=== PATIENT | male | born 1945 | race Caucasian/White ===

== ENCOUNTER → 2019-12-08 09:48 | Outpatient (BNVA) | payer OTHER, SELFPAY | PROVIDERS: Family Provider Family Medicine; PCP Family Medicine; Visit Provider Specialist | DX: G31.84 Mild cognitive impairment of uncertain or unknown etiology (principal); G25.0 Essential tremor; G43.019 Migraine without aura, intractable, without status migrainosus; F17.210 Nicotine dependence, cigarettes, uncomplicated | CPT/HCPCS: 99213 ==

== ENCOUNTER → 2021-01-31 12:10 | Outpatient (BNVA) | payer OTHER, SELFPAY | PROVIDERS: Family Provider Family Medicine; PCP Nurse Practitioner Family; Visit Provider Specialist | DX: G31.84 Mild cognitive impairment of uncertain or unknown etiology (principal); G25.0 Essential tremor; F17.210 Nicotine dependence, cigarettes, uncomplicated | CPT/HCPCS: 96116; 99213 ==

== ENCOUNTER → 2021-08-07 12:17 | Outpatient (BNVA) | payer OTHER, SELFPAY | PROVIDERS: Family Provider Family Medicine; PCP Nurse Practitioner Family; Visit Provider Specialist | DX: G25.0 Essential tremor (principal); G31.84 Mild cognitive impairment of uncertain or unknown etiology; F17.210 Nicotine dependence, cigarettes, uncomplicated | CPT/HCPCS: 99213 ==

== ENCOUNTER → 2021-09-07 07:35 | Outpatient (BNVA) | payer OTHER, SELFPAY | PROVIDERS: Family Provider Family Medicine; PCP Nurse Practitioner Family; Visit Provider Urology | DX: R31.0 Gross hematuria (principal) | CPT/HCPCS: 81003; 87086; 88112 ==

== ENCOUNTER 2021-09-19 07:35 | Outpatient (CLI) | payer OTHER, SELFPAY ==
--- NOTE | 2021-09-19 07:39 | CT_ITS ---
WS: [id number] CT CHEST WITH INTRAVENOUS CONTRAST HISTORY: ?PULMONARY NODULE TECHNIQUE: Contiguous 5 mm axial imaging performed on the thorax. Coronal and sagittal reformats are submitted. All CT scans at [facility] use at least one of these dose optimization techniques: automated exposure control; mA and/or kV adjustment per patient size (includes targeted exams where dose is matched to clinical indication); or iterative reconstruction. CONTRAST: Omnipaque 300; 95 mL IV. DLP: 369.94 mGy.cm COMPARISON: None available. Lungs and central airway: Severe pulmonary hyperexpansion with changes of emphysema. Numerous bulla a nd blebs are identified. Greatest in the upper lung douglass. Focal areas of increased soft tissue and consolidation with tethering in the apices of each lung but greatest involving the LEFT apex. Soft ti ssue thickening with bronchial wall thickening and tethering in the LEFT apex extends over length of 6.4 cm x 1.9 x 1.4 cm. Smaller similar apical thickening on the RIGHT. Mild diffuse haziness and grou ndglass attenuation throughout both lungs. Lobulated soft tissue mass in the RIGHT lower lobe within the periphery measures 1.7 x 1.0 x 1.0 cm. Pleura: Normal. No pleural effusion. Heart and pericardium: Normal size heart with no pericardial effusion. Mediastinum and marco antonio: No mediastinum or hilar adenopathy. Vessels: Mild atherosclerosis aorta. Normal size pulmonary artery. Chest wall and lower neck: Small bilateral axillary lymph nodes. Upper abdomen: Visualized liver is mildly heterogeneous. Low-attenuation mass in the RIGHT lobe measu res 4.0 x 3.4 cm consistent with a cyst. There is an additional partially visualized cyst within the upper pole LEFT kidney measuring 4.0 x 3.4 cm. Additional slight bulging of the superior cortex LEFT kidney with associated calcification measures 1.6 x 1.5 cm. The visualized colon demonstrates moderat e constipation. No adrenal mass. Osseous structures: Mild anterior wedging of T8. CT/CT chest w con* [id number] IMPRESSION: 1. Lobulated RIGHT lower lobe nodule measures 1.7 x 1.9 x 1.0 cm. Additional i ncreased soft tissue in the apices bilaterally but greatest on the LEFT, fibros is versus neoplastic. All of these areas may be neoplastic. Recommend follow-up PET/CT imaging for further evaluation. 2. Severe emphysema. 3. No adenopathy. 4. Hepatic cyst. 5. Incompletely visualized LEFT renal cysts. Possible exophytic mass with calc ification in the upper pole the LEFT kidney. This can also be further evaluated on follow-up PET/CT imaging.
[2021-09-19 08:18] LABS: Blood Urea Nitrogen 12 mg/dL (8-23)
[2021-09-19] MEDS: iohexol 300 mg/mL 100 mL Btl IV (08:57)
== END 2021-09-19 07:36 | disposition home or self-care (01) ==
LOC: RADWPI 07:36
PROVIDERS: PCP Nurse Practitioner Family; Visit Provider Family Medicine
DX: R91.1 Solitary pulmonary nodule (principal); J43.9 Emphysema, unspecified; K76.89 Other specified diseases of liver; Q61.02 Congenital multiple renal cysts
CPT/HCPCS: 71260; 82565; 84520; Q9967

== ENCOUNTER 2021-10-15 11:02 | Outpatient (CLI) | payer OTHER, SELFPAY ==
--- NOTE | 2021-10-15 11:00 | CT_ITS ---
WS: [id number] CT ABDOMEN PELVIS TECHNIQUE: Noncontrast CT of the abdomen and contrast-enhanced CT of the abdomen and pelvis with kel nal and sagittal reformatted images. CLINICAL INFORMATION: GROSS HEMATURIA COMPARISON: CT chest September 19, DLP: 1184.[address] scans at [facility] use at least one of these dose optimization techniques: automated e xposure control; mA and/or kV adjustment per patient size (includes targeted exams where dose is matc hed to clinical indication); or iterative reconstruction. FINDINGS: Lobulated likely right lower lobe nodule unchanged since September 19, 2021 measuring 1.8 x 1.0 CM. Findings remain suspicious for neoplasm. 6 stable right hepatic cyst measuring 4.0 x 3.5 CCM. Normal spleen. Normal GE junction. Adrenal gland s are normal. Normal renal parenchymal enhancement. No hydronephrosis. 6 stable dilated left renal pe lvis with delayed emptying. Contrast pooling in the dependent left renal pelvis. This is normal empty ing right kidney. Normal renal parenchymal enhancement bilaterally. Left renal cortical atrophy. Small left upper pole cortical exophytic cyst measuring 6 mm. Peripherally calcified left upper pole intraparenchymal renal lesion measuring 10 mm. Calcified enlarged prostate measuring 4.5 CCM. Mild fatty atrophy of the pancreas. Celiac and SMA are patent. Proximal renal arteries are patent. 6 6 normal sigmoid colon. No evidence of high-grade small or large bowel obstruction. Advanced lytic changes lumbar spine. Lumbar scoliosis convex left. Heterogeneous debris seen in the bladder only on the contrast-enhanced images is nonspecific and may be due to contrast mixing. This can be further evaluated with cystoscopy. CT/CT abdomen pelvis wo/w [id number] IMPRESSION: 1. Lobulated right lower lobe nodule unchanged from previous remains suspiciou s for neoplasm. Recommend PET/CT in further evaluation. 2. Dilated left renal pelvis with delayed emptying left kidney. Contrast pooli ng in the dilated left renal pelvis. No significant emptying on the delayed evan ges. No ureteral dilatation. 3. Normal right kidney with normal emptying. No obstruction right kidney. 4. Low-attenuation peripherally calcified left upper pole intraparenchymal branden al lesion likely represents a complex cyst measuring 10 mm but technically inde terminant Recommend 6 month follow-up. 5. Enlarged calcified prostate measuring 4.5 cm. 6. Heterogeneous debris seen in the bladder only on the contrast-enhanced imag es is nonspecific and may be due to contrast mixing. This can be further evalua karina with cystoscopy. 7. Stable right hepatic cyst measuring 4.0 x 3.5 CM. 8. No other acute findings.
[2021-10-15] MEDS: iohexol 300 mg/mL 100 mL Btl IV (11:45)
== END 2021-10-15 11:03 | disposition home or self-care (01) ==
LOC: RAD 11:04
PROVIDERS: PCP Nurse Practitioner Family; Visit Provider Urology
DX: R31.0 Gross hematuria (principal); R91.1 Solitary pulmonary nodule; N40.0 Benign prostatic hyperplasia without lower urinary tract symptoms; K76.89 Other specified diseases of liver
CPT/HCPCS: 74178; 81003

== ENCOUNTER 2021-12-05 07:14 | Outpatient (CLI) | payer OTHER, SELFPAY ==
[2021-12-05 07:30] VITALS: BMI 18.6
--- NOTE | 2021-12-05 07:38 | ECG_ITS ---
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 Interpretive Statements NAME OF STUDY: EXERCISE SESTAMIBI STRESS TEST INDICATION: Exertional dyspnea Baseline blood pressure of 148/79 mm Hg, heart rate of 67 beats per minute and oxygen saturation of 97%. EKG showed normal sinus rhythm with artifact. Possible old anteroseptal infarct. The patient exercised for 5 minutes 27 seconds on a standard Sharad protocol. Patient attained a maximum heart rate of 132 beats per minute(90% of the maximum predicted heart rate) with a blood pressure at the peak exercise of 181/87 mm Hg. The EKG at the peak exercise revealed sinus tachycardia. Uninterpretable due to baseline artifact. Patient did not have any chest pain or any significant arrhythmis with the exercise During the recovery phase, there were no new changes. Early in recovery blood pressure increased to 257/119 mmHg. Blood pressure at the end of the recovery phase was 161/86 mm Hg with a heart rate of 81 beats per minute and oxygen saturation of 95%. CONCLUSION: 1. Uninterpretable EKG response to treadmill exercise due to significant artifact at baseline and during exercise. 2. No exercise-induced chest pain or cardiac arrhythmia 3. Good exercise tolerance, attained a maximum of 7 METs. Maximum VO2 of 24.5 mL/kg/min. 4. Baseline hypertension with hypertensive response to exercise. 5. Perfusion scan will be documented separately. Electronically Signed On 12-07-2021 14:31:15 CDT by Tiffany Parikh M.D. [id number]
--- NOTE | 2021-12-05 07:39 | NMCV_ITS ---
NM xena perf SPECT r/s* [id number] Chaitanya Crump Age: 76 Gender: M : 1945 Exam Date: 12/05/2021 07:39 Ordering Phys: Tiffany Parikh MD ([email or web address]) Technologist: SALLY Elder Exam Location: [facility] Indications: SHORTNESS OF BREATH STRESS TEST Please see separate stress test report in [facility] for full findings IMAGE PROTOCOL Rest/Stress 1 Exercise Day Radiopharmaceutical Dose (mCi) Administration Site Administered by Rest: Tc-99m 10.7 IV SALLY Palacio Sestamibi Stress:Tc-99m 32.6 IV SALLY Palacio Sestamibi Rest: 05-Dec-2021 60 Discovery 630 Stress: 05-Dec-2021 30 Discovery 630 Radiopharmaceutical was injected at 85 % maximum heart rate. Images obtained in supine and prone position. SPECT RESULTS Technical Quality: Excellent Raw Data Analysis: Normal Image Corrections: No attenuation or motion correction applied Summed Stress Score: 6 Summed Rest Score: 8 Summed Difference Score: 3 PERFUSION FINDINGS Small sized perfusion abnormality of mild severity of mid to apical septal apical anterior and apical myers on rest images with mild reversibility in mid to apical inferior and apical lateral myers on supine stress images. Prone stress images with some reversibility in mid anteroseptal myers. FUNCTIONAL RESULTS (calculated via Gated SPECT) Stress Image LV EF (%): 75 Stress EDV (mL):76 TID: 1.11 Stress ESV (mL):19 FUNCTIONAL FINDINGS: The left ventricle is normal in size. Transient Ischemia Dilatation of 1.1. There is normal left ventricular systolic function. The left ventricular ejection fraction is normal with a value of 75%. There is normal left ventricular wall thickening with no regional wall motion abnormality. Normal end-diastolic end-systolic volumes. IMPRESSIONS 1. Small sized perfusion abnormality of mild severity of mid to apical septal, apical anterior and apical myers with mild reversibility in mid to apical inferior and apical lateral myers on stress images. 2. This may be suggestive of old myocardial infarction in right coronary artery and left anterior descending artery territory with mild eguenia-infarct ischemia. 3. Overall left ventricular systolic function is normal without regional wall motion abnormalities, LVEF=75%. 4. Uninterpretable EKG with exercise due to artifact. Refer to separate report for details. 5. No prior similar studies to compare. Tiffany Parikh MD (Electronically Signed) Final Date: 07 December 2021 14:38 S
[2021-12-05 10:09] VITALS: BP 161/86; PULSE 84
== END 2021-12-05 07:15 | disposition home or self-care (01) ==
LOC: RAD 07:14 → CDL 07:14
PROVIDERS: PCP Nurse Practitioner Family; Visit Provider Internal Medicine Cardiovascular Disease
DX: R06.09 Other forms of dyspnea (principal); R06.02 Shortness of breath; R94.39 Abnormal result of other cardiovascular function study; I10 Essential (primary) hypertension
CPT/HCPCS: 78452; 93017; A9500

== ENCOUNTER → 2021-12-07 09:43 | Outpatient (BNVA) | payer OTHER, SELFPAY | PROVIDERS: PCP Nurse Practitioner Family; Visit Provider Internal Medicine Pulmonary Disease | DX: R91.1 Solitary pulmonary nodule (principal); J44.9 Chronic obstructive pulmonary disease, unspecified; R31.0 Gross hematuria; N13.30 Unspecified hydronephrosis; F17.210 Nicotine dependence, cigarettes, uncomplicated | CPT/HCPCS: 87635; 99204 ==

== ENCOUNTER 2021-12-11 05:44 | Day surgery (SDC) | payer OTHER, SELFPAY ==
[2021-12-10 12:13] VITALS: BMI 18.6
[2021-12-11] VITALS (9 sets, daily range): BP systolic 108–135; BP diastolic 51–86; PULSE 60–83; RESP 16–20; TEMP 36.4–36.6; O2SAT 86–98
--- NOTE | 2021-12-11 | CT_ITS ---
Guided Bronchoscopy Planning CT images; total exam DLP: 952.22 mGy-cm MTDD
[2021-12-11] MEDS: sodium chloride 0.9% 1,000 ML 30 ML IV (06:24)
--- NOTE | 2021-12-11 06:57 | ANES.PREANE2 ---
Pre-Anesthetic Assessment Height/Weight: Height 1.78 m Weight 58.967 kg Temp Pulse Resp BP Pulse Ox 97.7 F 83 20 H 130/86 97 12/11/21 06:04 12/11/21 06:04 12/11/21 06:04 12/11/21 06:04 12/11/21 06:04 Preop Diagnosis: Lung nodule Operation Date: 12/11/21 07:00 Proposed Procedures p Ebus [id number]/r91.1(Not Applicable) - MD robert Ramirez(Not Applicable) - Gurmeet Hawthorne MD Was Beta Jesse taken within 24 hours: N/A Was Clonidine taken within 24 hours: N/A Last intake: Intake Last Liquid Date 12/10/21 Last Liquid Time 20:00 Last Solid Date 12/10/21 Last Solid Time 20:00 Social Alcohol and Tobacco Exam alert, oriented x 3, clear to auscultation bilaterally and regular rate & rhythm Airway Submandibular: within normal limits Cervical ROM: within normal limits Mallampati: Class II Dentition: full History/ROS No significant history except as noted and No significant complaints Pulmonary Chronic Obstructive Pulmonary Disease, Cough, Exertional Dyspnea and Shortness of Breath CV/HEM Hypertension Hematuria Hepatic None reported GI Gastroesophageal Reflux Disease Metabolic None reported Musc/skel Lower Back Pain and Osteoarthritis/DJD Neuropsych Anxiety Anesthetic Plan ASA status: 3 Anesthesia: Anesthesia Evaluation and General Risk of > 500 ml blood loss (7ml/kg in children): No Medications/Allergies Home Medications Medication Instructions Recorded Confirmed Last Taken Type tamsulosin 0.4 mg capsule 0.4 mg PO DAILY 12/08/19 12/11/21 12/10/21 History amitriptyline 25 mg tablet 25 mg PO DAILY #90 tab 08/07/21 12/11/21 12/10/21 Rx donepezil 5 mg tablet (Aricept) 5 mg PO DAILY #90 tab 08/07/21 12/11/21 12/10/21 Rx gabapentin 800 mg tablet 800 mg PO BID #180 tab 08/07/21 12/11/21 12/10/21 Rx aspirin 81 mg tablet,delayed 81 mg PO DAILY #100 tab 12/07/21 12/11/21 Unknown Rx release (Adult Aspirin Regimen) fluticasone 250 mcg-salmeterol 50 1 inh INHALATION BID 12/07/21 12/11/21 12/10/21 History mcg/dose blistr powdr for inhalation (Angelicavinh Paez) pravastatin 10 mg tablet 10 mg PO DAILY #100 tab 12/07/21 12/11/21 12/10/21 Rx Allergies Allergy/AdvReac Type Severity Reaction Status Date / Time acetaminophen [From Tylenol] Allergy hives/flush Verified 12/11/21 06:04 ed Current Medications Generic Name Dose Route Start Last Admin Trade Name Freq PRN Reason Stop Dose Admin Sodium Chloride 1,000 mls @ 30 mls/hr 12/11/21 06:00 12/11/21 06:24 Sodium Chloride 0.9% IV 12/12/21 05:59 30 mls/hr .Q24H DYLLAN Administration PFSH Anesthesia Medical History Anxiety disorder Benign prostatic hyperplasia COPD (chronic obstructive pulmonary disease) Disc degeneration Gastroesophageal reflux disease Gross hematuria Malignant neoplasm of bladder Polycythemia vera Tobacco abuse Surgical History No pertinent past surgical history Family History Mother , at age 95 Renal failure Father , in his 60's Cancer colon Social History Smoking and tobacco status: current every day smoker cigarettes Packs smoked per day: 3 Years cigarettes smoked: 67 [ Other cigarette details: 67 years; 0.5ppd currently] Alcohol intake: current Alcohol intake frequency: few times a month Marital status: Current occupational status: retired History of recent travel: No Data Anesthesia Cardiac Studies: Sestamibi Stress Test (Cardiology) 12/05/21
--- NOTE | 2021-12-11 07:04 | P.HPUD_ITS ---
Surgery/Procedure H&P Update DATE OF PROCEDURE: December 11, 2021 DATE H&P PERFORMED: 12/07/21 CHANGES TO PREVIOUS DOCUMENTATION: none PREOP DIAGNOSIS: Lung nodule PRIMARY INDICATION FOR PROCEDURE: PET/CT scan on 11/03/2021 showed pulmonary nodule in the lateral right lower lobe measuring 1.4 x 2.2 cm with SUV 6.4 highly probability of malignancy.? Secondary nodule measures 1.3 x 1.2 cm in the central left upper lobe SUV 4.7 consistent with malignancy.? Adjacent apical scarring does not demonstrate significant activity.? Left hilar activity is prominent, metastatic adenopathy cannot be ex cluded PLANNED PROCEDURE: Operation Date: 12/11/21 07:00 Proposed Procedures p Ebus [id number]/r91.1(Not Applicable) - MD robert Ramirez(Not Applicable) - Gurmeet Hawthorne MD Related Problem List Diagnoses (1) Pulmonary nodule, right: (2) Tobacco abuse: (3) COPD (chronic obstructive pulmonary disease):
[2021-12-11] MEDS: cetacaine Spray 5 gm Can 1 SPRAY XX (07:30)
[2021-12-11] MEDS: lidocaine 1% INJ 20 mL XX (07:30)
--- NOTE | 2021-12-11 09:54 | XRR_ITS ---
PROCEDURE INFORMATION: Exam: XR Chest Exam date and time: 12/11/2021 10:01 AM Age: 76 years old Clinical indication: Device placement. Post bronchoscopy and biopsies. Post-operative (0-2 days). Coughing. Shortness of breath. Check for pneumothorax. TECHNIQUE: Imaging protocol: XR of the chest. Views: 1 view. COMPARISON: CT chest wo con [id number] 12/11/2021 7:11 AM FINDINGS: Tubes, catheters and devices: There are electronic leads overlying the chest. Lungs: A mass in the right lower lobe is better seen on CT. Probable scarring in the lung apices. Moderate emphysema. Pleural spaces: No pleural effusion. No pneumothorax. Heart/Mediastinum: The cardiac silhouette is unremarkable. No gross evidence of pneumomediastinum. Bones/joints: No gross fracture. XR/XR chest 1V portable [id number] IMPRESSION: 1. No pneumothorax is seen. 2. A mass in the right lower lobe is better seen on CT. 3. Moderate emphysema.
--- NOTE | 2021-12-11 09:59 | PM.OP ---
Operative Report Date of procedure: December 11, 2021 Pre-op diagnosis: Preop Diagnosis Lung nodule Brief History: Ms. Chaitanya rCump is a 76-year-old male with past medical history of anxiety BPH, COPD, chronic smoker, GERD, unspecific malignant neoplasm of bladder, polycythemia vera referred by [facility] for lung nodule. Patient presented to his PCP office at [facility] on 08/07/2021 with complaint of increasing shortness of breath over the last few years which has been worsening in 6 months and is motivated to quit smoking. At PCP office, his mometasone inhaler will stop started on Wixela in addition to working on smoking cessation.? Uses albuterol 2-3 times a day.? Chest x-ray showed?? New nodule within right lower lobe and hence a CT chest was obtained on 09/19/2021 which showed lobulated RLL nodule measuring 1.7 x 1.9 x 1 cm additionally increased soft tissue in the apices bilaterally greatest on the left, fibrosis versus neoplastic.? All of these areas may be neoplastic.? Subsequent PET/CT scan on 11/03/2021 showed pulmonary nodule in the lateral right lower lobe measuring 1.4 x 2.2 cm with SUV 6.4 High probability of malignancy.? Secondary nodule measures 1.3 x 1.2 cm in the central left upper lobe SUV 4.7 consistent with malignancy.? Adjacent apical scarring does not demonstrate significant activity.? Left hilar activity is prominent, metastatic adenopathy cannot be excluded.? Currently patient is using Wixela 1 inhalation twice daily and it helps some extent but he still has dyspnea. Current cigarette smoker 3ppd x 69 years, started age 9; currently smoking 0.5ppd using nicotine patches and trying to quit. Patient is scheduled for PFTs on 01/04/2022 Name of the procedure: 1. Bronchoscopy with inspection of the airway, bronchoalveolar lavage, 2. Navigational bronchoscopy guided transbronchial biopsies and fine-needle aspiration cytology of right lower lobe nodule, 3. Endobronchial ultrasound-guided transbronchial needle aspiration of lymph nodes 11 L 4. Control of bleeding. Indication: Right Lower lobe PET positive lung nodule Anesthesia: General anesthesia. Local anesthesia: The michael in the right and left mainstem bronchi were anesthetized with 1% lidocaine, 3 mL. Description of the procedure: The procedure was explained to the patient and the consent was obtained.? The patient was brought to the OR.? The patient underwent endotracheal intubation for general anesthesia.? Following induction of general anesthesia, the bronchoscope was advanced through the ET tube.? The lower trachea appeared to be normal.? The michael was sharp.? The michael, the right and left mainstem bronchi are anesthetized with 1% lidocaine.? In a systematic manner bilateral bronchial tree was then examined.? The bronchoscope was advanced into the left mainstem bronchus. The left upper lobe, lingula and left lower lobe bronchi were examined up to the third subsegmental level and no abnormalities were identified. The bronchoscope was then introduced into the right mainstem bronchus.? The right upper lobe, right middle lobe and right lower lobe bronchi were examined up to the third subsegmental level and no abnormalities were identified.? Mucus was noted diffusely throughout the airways which were suctioned right away. Using navigational bronchoscopy technique, transbronchial biopsies were obtained from the right lower lobe lung nodule.? Fine-needle aspiration was also performed from the same nodule. Bronchoalveolar lavage was performed from the right lower lobe.? 50 cc of fluid was instilled, fluid return was 20 mL. The endobronchial ultrasound was introduced through the ET tube.? The lymph nodes in 11L noted to be 7mm in size with no distinct cortex and medulla. Fine needle aspiration of 11 L lymph node were taken and sent to histopathology. Samples: 1.? The transbronchial biopsies from RLL nodule were sent for histopathology. 2.? The fine-needle aspiration from RLL nodule was sent for cytology. 3.? The bronchoalveolar lavage was sent for cytology. 4. Ebus guided Fine needle aspiration of 11L lymph node are sent for histopathology Complications: There was no immediate complications.? Chest x-ray: No pneumothorax
--- NOTE | 2021-12-11 11:23 | SUR.PHASEII ---
Respiratory consulted, home O2 needed, set up by charge nurse Boston Tyson
--- NOTE | 2021-12-11 13:55 | ANE.PACU2 ---
Inpatient post-anesthesia follow up: Airway intact: Yes Vital signs: Temperature 97.5 F Pulse Rate 63 Respiratory Rate 18 Blood Pressure 135/74 Pulse Oximetry [Qu alifying 92 Sp02 on Oxygen wit h Exercise] Pulse Oximetry [Ro om Air at 86 Rest] Pulse Oximetry 89 Oxygen Delivery Me thod Room Air Oxygen Flow Rate 2 Fraction of Inspir ed Oxygen Hydration adequate: Yes Nausea and vomiting: No Pain level: 2 Mental status: Baseline
[2021-12-14 12:20] LABS: Miscellaneous Test See Scanned Lab Rpt
== END 2021-12-11 11:22 | disposition home or self-care (01) ==
PROVIDERS: PCP Family Medicine; Visit Provider Internal Medicine Pulmonary Disease
PROC: BB4BZZZ Ultrasonography of Pleura (ICD-10-PCS; principal; 2021-12-11 07:00)
PROC: 0BJ08ZZ Inspection of Tracheobronchial Tree, Via Natural or Artificial Opening Endoscopic (ICD-10-PCS; CPT 31622; 2021-12-11 07:00)
DX: R91.1 Solitary pulmonary nodule (principal); J44.9 Chronic obstructive pulmonary disease, unspecified; I10 Essential (primary) hypertension; F41.9 Anxiety disorder, unspecified; M19.90 Unspecified osteoarthritis, unspecified site; Z79.82 Long term (current) use of aspirin; N40.0 Benign prostatic hyperplasia without lower urinary tract symptoms; K21.9 Gastro-esophageal reflux disease without esophagitis; F17.210 Nicotine dependence, cigarettes, uncomplicated
CPT/HCPCS: 31624; 31627; 31632; 31652; 71045; 71250; 77011; 80500; 87070; 87205; 88108; 88305; 88307; 88342; J1100; J2370; J2704; J2710; J3010; J3490; J7030

== ENCOUNTER 2022-01-01 13:59 | Outpatient (CLI) | payer OTHER, SELFPAY ==
--- NOTE | 2022-01-01 19:37 | ONC CON_ITS ---
Dr. Jennings New Patient Note Patient: Chaitanya Crump Unit #: [id number]: 1945 Dicatated By: Jacky Jennings M.D.Date of Visit: Jan 01, 2022 Onc MED New Patient/Consult Referring Physician: Gurmeet Hawthorne Chief Complaint: Lung cancer. 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 In July 2021 he had been seen [facility] by Dr. Yi Escobedo with complaints of increased shortness of breath. A contrast-enhanced chest CT on 09/19/2021 showed a lobulated nodule in the lower lobe of the right lung measuring 1.7 x 1.9 x 1.0 cm, consistent with neoplasm. Also noted was soft tissue thickening with bronchial wall thickening and tethering in the left apex extending over a length of 6.4 x 1.9 x 1.4 cm. There were smaller but similar appearing apical thickening on the right. There is mild diffuse haziness and groundglass attenuation throughout both lungs, and there was evidence for severe emphysema. A low-attenuation in the right hepatic lobe measuring 4.0 x 3.4 cm appeared consistent with a cyst. CT abdomen/pelvis on 10/15/2021 showed dilated left renal pelvis with delayed emptying of the left kidney. There is no ureteral dilatation noted. Low attenuation peripherally calcified left upper pole intraparenchymal renal lesion was felt to likely represent a complex cyst measuring 10 mm. Enlarged calcified prostate measured 4.5 cm. The right hepatic cyst appeared stable measuring 4.0 x 3.5 cm. Further evaluation with PET/CT on 11/03/2021 showed an FDG avid nodule in the lateral right lower lobe measuring 1.4 x 2.2 cm, SUV 6.4, with high probability of malignancy. A second nodule in the central left upper lobe measuring 1.8 x 1.2 cm was FDG avid with SUV 4.7, also consistent with malignancy. Also noted was suspicious activity in the left hilum, SUV not stated, but metastatic adenopathy not excluded. An incidental finding was left-sided hydronephrosis. He was referred to Dr. Hawthorne. On 12/11/2021 he underwent navigational bronchoscopy biopsy of the right lower lobe lung nodule and with EBUS/FNA biopsy of station 11 L lymph node. There were no endobronchial lesions identified. By ultrasound the 11 L lymph node was noted to measure 7 mm with no distinct cortex and medullary. Pathology on the right lower lobe FNA biopsy showed atypical cells in a background of ciliated bronchial epithelial cells. Transbronchial biopsy of the right lower lobe mass showed moderate to poorly differentiated adenocarcinoma, TTF-1 strongly and diffusely positive. FNA biopsy of the 11 L lymph node showed cartilaginous tissues with rare epithelial cells. There was no malignancy identified. He is seen now for further management. He says he has pretty good energy, but his activity is limited due to shortness of breath. He is able to do chores, though. ECOG score is 1. His appetite is okay, though he does not eat a lot. His weight is stable. He does not have fever or night sweats. He has had a little bit of sore throat. He has not had difficulty swallowing. He has cough productive of clear sputum. He is short of breath with activity, and his breathing has gotten worse during the past year or so. He has not had chest pain or hemoptysis. He currently has no GI complaints. His bladder function has been okay. He has had intermittent gross hematuria, and he is following with Dr. Calvo. He has normal joint pain and stiffness. He has chronic neck pain. He otherwise does not have headache. He sometimes has orthostatic lightheadedness. He has no numbness/paresthesia or other focal neurologic symptoms. He has chronic tremor. He also has anxiety, and he is taking medication for cognitive dysfunction. Past Medical History: His medical history includes anxiety, benign prostatic hypertrophy, chronic obstructive pulmonary disease, cognitive dysfunction, degenerative disease of the spine, and essential tremor. Past Surgical History: His surgical/procedural history includes navigational bronchoscopy with EBUS in 2021 and cystoscopy in 2020. Medications: Amitriptyline HCl 1 Tablet (of 25 mg) Oral daily, Donepezil HCl 1 Tablet (of 5 mg) Oral daily, Fluticasone-Salmeterol 1 Inhalation (of 250-50 mcg/dose) Aerosol Powder, Breath Activated Inhalation b.i.d., Gabapentin 1 Tablet (of 800 mg) Oral b.i.d., Tamsulosin HCl 1 Capsule (of 0.4 mg) Oral daily Allergies: Acetaminophen Social History: Mr. Crump is . He has a history of smoking for 68 years, up to 3 packs of cigarettes daily when he was younger. He currently smokes 1 pack/day. His current alcohol use is reported at 3-4 beers daily. He was drinking more heavily in the past, at least 15 years ago. Family History: Father of colon cancer at age 60. His mother apparently had renal failure, but she lived to age 95. Three brothers and 1 sister are still living. One brother has been treated for hepatitis C. Review Of Symptoms: Constitutional - He says his energy is pretty good, but he does have limited activity due to shortness of breath. He is able to do chores. His appetite is okay, though he says he does not eat a lot. His weight has been stable. He has no fever or night sweats. ECOG score is 1, Eyes - No change in vision, ENMT - No hearing loss or tinnitus. No sinus congestion/drainage. No mouth sores. He has had a little bit of sore throat. No difficulty swallowing, Hematologic/Lymphatic - No abnormal bruising or bleeding, Respiratory - He has shortness of breath with any activity. He has cough productive of clear sputum. No pleuritic pain or hemoptysis, Cardiovascular - No angina pain. No palpitations, Gastrointestinal - No nausea or vomiting. No heartburn or acid reflux. No diarrhea or constipation. No blood in the stool or black stools, Genitourinary (M) - No dysuria. He has had intermittent hematuria, but none currently. No urinary frequency. He has nocturia x 2. No urgency or incontinence, Musculoskeletal - He has normal joint pain and stiffness. He has chronic neck pain, Integumentary - No skin rash or other skin changes, Neurologic - No headache. He sometimes has lightheadedness. No numbness or tingling. No other focal neurologic symptoms. He does have chronic tremor, Psychiatric - He has anxiety but not depression. He is taking medication for memory loss. No insomnia. Vital Signs: Performed on Jan 01, 2022 15:24: 4, 0, 18.88, 1.75 sq.m, 70 in, 95 % (LOW), 81 /min, 18 /min, 120/74 mm(hg), 98.5 F, and 131.6 lbs (HIGH). Physical Examination: Constitutional - He appears chronically ill, Eyes - Sclerae nonicteric. Conjunctivae clear, ENMT - No lesions noted in the oral cavity, Neck - No mass or thyromegaly, Hematologic/Lymphatic - No cervical, clavicular, or axillary adenopathy, Respiratory - Lungs sound clear with diminished air movement bilaterally, Cardiovascular - Heart rhythm is regular. There is no murmur, gallop, or rub noted, Abdomen - Soft and non-tender. Liver and spleen are not enlarged. There is no abdominal mass or ascites noted and there is no inguinal adenopathy, Back/Spine - No spine or CVA tenderness noted, Extremities - No edema. Dorsalis pedis pulses are palpable bilaterally, Integumentary - No rashes. No suspicious skin lesions noted, Neurologic - He does have a significant tremor. There are no focal neurologic deficits noted. Problem List: 1. Moderate to poorly differentiated adenocarcinoma involving the lower lobe of the right lung. Staging is uncertain, but there is also a suspected malignant lesion in the upper lobe of the left lung. 2. Hydronephrosis of the left kidney. Etiology is uncertain. 3. COPD. 4. Degenerative disease of the spine. 5. Benign prostatic hypertrophy. 6. Cognitive dysfunction. 7. Essential tremor. 8. Chronic anxiety. Problems Addressed with this Encounter and Plan: 1. 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 By PET/CT, there was also a suspected malignant lesion in the upper lobe of the left lung and there was FDG uptake in the left hilar area such that metastatic adenopathy was not excluded. The PET/CT findings and images were reviewed with the patient and his daughter. I also reviewed the pathology results, and we discussed the clinical implications. He has biopsy-proven non-small cell carcinoma involving the lower lobe of the right lung. The activity in the upper lobe of the left lung is also very suspicious. In the absence of any other areas of involvement, those 2 sites could potentially be treated with SBRT. With that in mind, I am going to schedule a diagnostic chest CT scan, as there has now been close to a 2-month interval since the PET/CT. If that study shows no suspicious adenopathy in the mediastinal/hilar area, I think it would be reasonable to consider a repeat bronchoscopy for biopsy of the left upper lobe lesion. If that is confirmed to be malignant, then it would be appropriate to proceed with SBRT. 2. There is CT evidence of left hydronephrosis. He is being followed by Dr. Calvo, and he likely will be undergoing ureteral stent placement. Signed By: Jacky Jennings M.D. <<Signature on File>>
== END 2022-01-01 14:00 | disposition home or self-care (01) ==
PROVIDERS: PCP Family Medicine; Visit Provider Internal Medicine Hematology & Oncology
DX: C34.31 Malignant neoplasm of lower lobe, right bronchus or lung (principal); F17.210 Nicotine dependence, cigarettes, uncomplicated; R91.8 Other nonspecific abnormal finding of lung field; N13.30 Unspecified hydronephrosis
CPT/HCPCS: 99205

== ENCOUNTER 2022-01-15 15:13 | Outpatient (CLI) | payer OTHER, SELFPAY ==
--- NOTE | 2022-01-15 15:22 | CT_ITS ---
WS: [id number] CT CHEST WITH INTRAVENOUS CONTRAST HISTORY: LUNG CANCER TECHNIQUE: Contiguous 5 mm axial imaging performed on the thorax. Coronal and sagittal reformats are submitted. All CT scans at [facility] use at least one of these dose optimization techniques: automated exposure control; mA and/or kV adjustment per patient size (includes targeted exams where dose is matched to clinical indication); or iterative reconstruction. CONTRAST: Visipaque 320; 95 mL IV. DLP: 600.80 mGy.cm COMPARISON: 09/19/[address] and PET/CT 11/03/2021 Lungs and central airway: Solid nodule with spiculation RIGHT lower lobe was positive on a recent PET /CT. This nodule has increased in size since the CT of 09/19/2021 now measuring 2.3 x 1.8 x 2.5 cm. M ild tagging to the pleura. Additional spiculated nodule in the LEFT upper lobe towards the apex measu res 2.0 x 1.1 cm with only slight increase in size. This was also noted to be positive on a recent PE T/CT. Fibrotic changes at the RIGHT apex with no change in the nodular component. Severe chronic emph ysema. Pleura: Normal. No pleural effusion. Heart and pericardium: Normal size heart with no pericardial effusion. Mediastinum and marco antonio: No significantly enlarged mediastinal or hilar lymph nodes. Vessels: Mild atherosclerosis and ectasia. Normal size pulmonary artery. Chest wall and lower neck: No soft tissue masses. Upper abdomen: Stable RIGHT hepatic cyst measures 2.9 x 3.0 cm. There is an additional cystic mass in the central LEFT kidney with diffuse cortical thinning of the visualized kidney. There is an additio nal more solid mass with calcification in the upper pole LEFT kidney. This solid mass measures 1.6 x 1.7 cm and is unchanged. No adrenal mass. No metastatic lesions present within the liver. Atrophied p ancreas. Osseous structures: Increase in the thoracic kyphosis. Degenerative disc space narrowing. No osteobla stic or osteolytic bone disease. CT/CT chest w con* [id number] IMPRESSION: 1. Increase in size of the PET/CT positive nodule RIGHT lower lobe now measuri ng 2.3 x 1.8 x 2.5 cm. Consistent with malignancy. 2. No significant increase in size of the PET/CT positive nodule with spiculat ion LEFT upper lobe now measuring 2.0 x 1.1 cm. 3. Severe chronic emphysema. 4. No mediastinal or hilar adenopathy. 5. No adrenal mass.
[2022-01-15 16:01] LABS: Blood Urea Nitrogen 10 mg/dL (8-23)
== END 2022-01-15 15:14 | disposition home or self-care (01) ==
LOC: RAD 15:17
PROVIDERS: PCP Family Medicine; Visit Provider Internal Medicine Medical Oncology
DX: C34.90 Malignant neoplasm of unspecified part of unspecified bronchus or lung (principal); J43.9 Emphysema, unspecified
CPT/HCPCS: 71260; 82565; 84520; Q9967

== ENCOUNTER → 2022-01-24 08:56 | Outpatient (BNVA) | payer OTHER, SELFPAY | PROVIDERS: PCP Family Medicine; Visit Provider Internal Medicine Pulmonary Disease | DX: J44.9 Chronic obstructive pulmonary disease, unspecified (principal); R31.0 Gross hematuria; N13.30 Unspecified hydronephrosis; F17.210 Nicotine dependence, cigarettes, uncomplicated; C34.91 Malignant neoplasm of unspecified part of right bronchus or lung; R91.1 Solitary pulmonary nodule; K21.9 Gastro-esophageal reflux disease without esophagitis | CPT/HCPCS: 99214 ==

== ENCOUNTER 2022-01-29 07:44 | Day surgery (SDC) | payer OTHER, SELFPAY ==
[2022-01-25 11:02] VITALS: BMI 19.1
--- NOTE | 2022-01-29 | CT_ITS ---
Guided Bronchoscopy Planning CT images; total exam DLP: 629.99 mGy-cm MTDD
[2022-01-29 08:01] VITALS: BP 136/77; PULSE 84; RESP 18; TEMP 37; O2SAT 97
[2022-01-29] MEDS: sodium chloride 0.9% 1,000 ML 30 ML IV ×2 (08:16→11:45)
--- NOTE | 2022-01-29 08:29 | P.ANESASSM_ITS ---
Pre-Anesthetic Assessment Height/Weight: Height 1.78 m Weight 60.328 kg Temp Pulse Resp BP Pulse Ox 98.6 F 84 18 136/77 97 01/29/22 08:01 01/29/22 08:01 01/29/22 08:01 01/29/22 08:01 01/29/22 08:01 Preop Diagnosis: Lung nodule Operation Date: 01/29/22 09:15 Proposed Procedures p Navigational Bronchoscopy 04215, 82032, 61781, 17575, 47280, 22417, 25469 /R91.8(Not Applicable) Donna Cadet DatarMD Familial anesthetic complications: None Last intake: Intake Last Liquid Date 01/28/22 Last Liquid Time 22:00 Last Solid Date 01/28/22 Last Solid Time 20:00 Social Tobacco and No alcohol Exam alert, oriented x 3, clear to auscultation bilaterally and regular rate & rhythm Airway Submandibular: within normal limits Cervical ROM: within normal limits Mallampati: Class II Comments: Comments: Missing teeth Pulmonary Chronic Obstructive Pulmonary Disease Lung adenocarcinoma Has home O2 Rx, does not use CV/HEM Hypertension Polycythemia vera METS < 4 Nuc Med scan 12/11 IMPRESSIONS ?1. Small sized perfusion abnormality of mild severity of mid to apical septal, ?apical anterior and apical myers with mild reversibility in mid to apical ?inferior and apical lateral myers on stress images. ?2. This may be suggestive of old myocardial infarction in right coronary artery ?and left anterior descending artery territory with mild eugenia-infarct ischemia. ?3. Overall left ventricular systolic function is normal without regional wall ?motion abnormalities, LVEF=75%. ?4.? Uninterpretable EKG with exercise due to artifact.? Refer to separate ?report for details. ?5.? No prior similar studies to compare. Stress Test 12/05/21 CONCLUSION: 1.? Uninterpretable EKG response to treadmill exercise due to significant artifact at baseline and during exercise. 2.? No exercise-induced chest pain or cardiac arrhythmia 3.? Good exercise tolerance, attained a maximum of 7 METs.? Maximum VO2 of 24.5 mL/kg/min. 4.? Baseline hypertension with hypertensive response to exercise. 5.? Perfusion scan will be documented separately. BPH Hematuria Bladder neoplasm Hydronephrosis Hepatic None reported GI Gastroesophageal Reflux Disease Metabolic None reported Musc/skel Lower Back Pain and Osteoarthritis/DJD Neuropsych Anxiety Essential tremor Mild cognitive impairment Anesthetic Plan ASA status: 3 (76 year old male with lung cancer, COPD, GERD, polcythemia vera, and anxiety. ) Anesthesia: Anesthesia Evaluation and General Other: We discussed risk and benefits of general anesthesia including PONV, sore throat (sometimes severe), corneal abrasion, positioning and peripheral nerve injuries, life threatening allergic reaction, post operative ICU admission requiring prolonged intubation, stroke, heart attack, , and rare incidences of recall. Patient consents to proceed with general anesthesia. Risk of > 500 ml blood loss (7ml/kg in children): No Medications/Allergies Home Medications Medication Instructions Recorded Confirmed Last Taken Type tamsulosin 0.4 mg capsule 0.4 mg PO DAILY 12/08/19 01/25/22 12/10/21 History amitriptyline 25 mg tablet 25 mg PO DAILY #90 tab 08/07/21 01/25/22 12/10/21 Rx donepezil 5 mg tablet (Aricept) 5 mg PO DAILY #90 tab 08/07/21 01/25/22 12/10/21 Rx gabapentin 800 mg tablet 800 mg PO BID #180 tab 08/07/21 01/25/22 12/10/21 Rx aspirin 81 mg tablet,delayed 81 mg PO DAILY #100 tab 12/07/21 01/25/22 Unknown Rx release (Adult Aspirin Regimen) fluticasone 250 mcg-salmeterol 50 1 inh INHALATION BID 12/07/21 01/25/22 12/10/21 History mcg/dose blistr powdr for inhalation (Wixela Inhub) pravastatin 10 mg tablet 10 mg PO DAILY #100 tab 12/07/21 01/25/22 12/10/21 Rx tiotropium 2.5 mcg-olodaterol 2.5 2 puff INHALATION DAILY #4 g 01/24/22 01/25/22 Unknown Rx mcg/actuation mist for inhalation (Stiolto Respimat) Allergies Allergy/AdvReac Type Severity Reaction Status Date / Time acetaminophen [From Tylenol] Allergy hives/flush Verified 01/24/22 09:39 ed Current Medications Generic Name Dose Route Start Last Admin Trade Name Freq PRN Reason Stop Dose Admin Sodium Chloride 1,000 mls @ 30 mls/hr 01/29/22 08:00 01/29/22 08:16 Sodium Chloride 0.9% IV 01/30/22 07:59 30 mls/hr .Q24H DYLLAN Administration PFSH Anesthesia Medical History Anxiety disorder Benign prostatic hyperplasia COPD (chronic obstructive pulmonary disease) Disc degeneration Gastroesophageal reflux disease Gross hematuria Malignant neoplasm of bladder Polycythemia vera Pulmonary nodule, right Tobacco abuse Surgical History No pertinent past surgical history Family History Mother , at age 95 Renal failure Father , in his 60's Cancer colon Social History Smoking and tobacco status: current every day smoker cigarettes Packs smoked per day: 3 Years cigarettes smoked: 67 [ Other cigarette details: 67 years; 0.5ppd currently] Alcohol intake: current Alcohol intake frequency: few times a month Marital status: Current occupational status: retired History of recent travel: No Data Anesthesia Cardiac Studies: Sestamibi Stress Test (Cardiology) 12/05/21
--- NOTE | 2022-01-29 09:18 | P.HPUD_ITS ---
Surgery/Procedure H&P Update DATE OF PROCEDURE: January 29, 2022 DATE H&P PERFORMED: 01/24/22 CHANGES TO PREVIOUS DOCUMENTATION: none PREOP DIAGNOSIS: Lung nodule PRIMARY INDICATION FOR PROCEDURE: Patient has poorly differentiated adenocarcinoma of right lower lobe lesion. Today plan is to obtain biopsy on RMO nodule if that is confirmed to be malignant, then it would be appropriate to proceed with SBRT of?left upper lobe and right lower lobe nodule. Also I will do Endobronchial ultrasound guided fine needle aspiration of mediastinal/hilar lymph nodes PLANNED PROCEDURE: Operation Date: 01/29/22 09:15 Proposed Procedures p Navigational Bronchoscopy 34444, 16455, 30893, 79973, 60028, 61930, 3163 2/R91.8(Not Applicable) - Gurmeet Cadet DatarMD
--- NOTE | 2022-01-29 13:31 | ANE.PACU2 ---
Inpatient post-anesthesia follow up: Vital signs: Temperature 98.6 F Pulse Rate 84 Respiratory Rate 18 Blood Pressure 136/77 Pulse Oximetry 97 Oxygen Delivery Me thod Room Air Oxygen Flow Rate Fraction of Inspir ed Oxygen
[2022-01-29 13:58] VITALS: BP 138/74; PULSE 74; RESP 16; TEMP 37; O2SAT 97
--- NOTE | 2022-01-29 14:01 | XR_ITS ---
WS: [id number] PORTABLE CHEST HISTORY: Bronch/EBUS COMPARISON: 12/11/2021 No pneumothorax post bronchoscopy. Mild pleural thickening at the RIGHT lung apex. Spiculated nodule in the RIGHT lower lobe is better s een by CT. Nodule measures approximately 17 mm. No pneumothorax identified. No pleural effusion or pn eumothorax. Cardiac size: Normal. Mediastinum/Aorta: Mild atherosclerosis aorta. No osseous abnormality seen. XR/XR chest 1V portable [id number] IMPRESSION: 1. No pneumothorax status post RIGHT bronchoscopy. 2. Chronic emphysema and RIGHT lower lobe nodule.
[2022-01-29 14:04] VITALS: BP 115/74; BP 127/80; PULSE 67; PULSE 79; RESP 16; TEMP 37.1; O2SAT 94; O2SAT 95
[2022-01-29 14:20] VITALS: BP 125/81; PULSE 67; RESP 18; O2SAT 94
--- NOTE | 2022-01-29 14:29 | P.OP_ITS ---
Operative Report Date of procedure: January 29, 2022 Pre-op diagnosis: Preop Diagnosis lung cancer Post-op diagnosis: lung cancer Procedure done: Name of the procedure: 1. Bronchoscopy with inspection of the airway, bronchoalveolar lavage of left upper lobe, 2. Navigational bronchoscopy guided transbronchial biopsies and fine-needle aspiration cytology of left upper lobe nodule, 3. Endobronchial ultrasound-guided transbronchial surveillance of mediastinal and hilar lymphnodes 4. Control of bleeding. Surgeon: Gurmeet Hawthorne MD Brief History: Ms. Chaitanya Crump is a 76-year-old male with past medical history of anxiety BPH, COPD, chronic smoker, GERD, unspecific malignant neoplasm of bladder, polycythemia vera referred by [facility] for lung nodule. Patient presented to his PCP office at [facility] on 08/07/2021 with complaint of increa sing shortness of breath over the last few years which has been worsening in 6 months and is motivated to quit smoking. At PCP office, his mometasone inhaler will stop started on Wixela in addition to working on smoking cessation.? Uses albuterol 2-3 times a day.? Chest x-ray showed?? New nodule within right lower lobe and hence a CT chest was obtained on 09/19/2021 which showed lobulated RLL nodule measuring 1.7 x 1.9 x 1 cm additionally increased soft tissue in the apices bilaterally greatest on the left, fibrosis versus neoplastic.? All of these areas may be neoplastic.? Subsequent PET/CT scan on 11/03/2021 showed pulmonary nodule in the lateral right lower lobe measuring 1.4 x 2.2 cm with SUV 6.4 High probability of malignancy.? Secondary nodule measures 1.3 x 1.2 cm in the central left upper lobe SUV 4.7 consistent with malignancy.? Adjacent apical scarring does not demonstrate significant activity.? Left hilar activity is prominent, metastatic adenopathy cannot be excluded.? On 12/11/2021 he underwent navigational bronchoscopy biopsy of the right lower lobe lung nodule and with EBUS/FNA biopsy of station 11 L lymph node.? There were no endobronchial lesions identified.? By ultrasound the 11 L lymph node was noted to measure 7 mm with no distinct cortex and medullary.? Pathology of the right lower lobe mass showed moderate to poorly differentiated adenocarcinoma, TTF-1 strongly and diffusely positive.? FNA biopsy of the 11 L lymph node showed cartilaginous tissues with rare epithelial cells.? There was no malignancy identified.? Patient follow-up with oncology Dr. Jennings and had a repeat CT Chest on 12/26/2021 which showed increased? size in RLL nodule and no significant increase in spiculated left upper lobe nodule .? Did not show any mediastinal/hilar lymph node.?? Discussed with Dr. Jennings and I will plan for navigational bronchoscopy? biopsy of left upper lobe nodule- If that is confirmed to be malignant, then it would be appropriate to proceed with SBRT of? left upper lobe and right lower lobe nodule. Today scheduled for navigational bronchoscopy? biopsy of left upper lobe nodule- Currently patient is using Wixela 1 inhalation twice daily and it helps some extent but he still has dyspnea. Current cigarette smoker 3ppd x 67 years, started age 9; currently reported smoking 0.5ppd using nicotine patches and trying to quit. Procedure: Name of the procedure: Name of the procedure: 1. Bronchoscopy with inspection of the airway, bronchoalveolar lavage of left upper lobe, 2. Navigational bronchoscopy guided transbronchial biopsies and fine-needle aspiration cytology of left upper lobe nodule, 3. Endobronchial ultrasound-guided transbronchial surveillance of mediastinal and hilar lymphnodes 4. Control of bleeding. Indication: left upper lobe PET positive lung nodule - second primary vs metastatic lesion Anesthesia: General anesthesia. Local anesthesia: The michael in the right and left mainstem bronchi were anesthetized with 1% lidocaine, 3 mL. Description of the procedure: The procedure was explained to the patient and the consent was obtained.? The patient was brought to the OR.? The patient underwent endotracheal intubation for general anesthesia.? Following induction of general anesthesia, the bronchoscope was advanced through the ET tube.? The lower trachea appeared to be normal.? The michael was sharp.? The michael, the right and left mainstem bronchi are anesthetized with 1% lidocaine.? In a systematic manner bilateral bronchial tree was then examined.? The bronchoscope was advanced into the left mainstem bronchus. The left upper lobe, lingula and left lower lobe bronchi were examined up to the third subsegmental level and no abnormalities were identified. The bronchoscope was then introduced into the right mainstem bronchus.? The right upper lobe, right middle lobe and right lower lobe bronchi were examined up to the third subsegmental level and no abnormalities were identified.? clear Mucus was noted diffusely throughout the airways which were suctioned right away. Using navigational bronchoscopy technique, transbronchial biopsies were obtained from the left upper lobe lung nodule.? Fine-needle aspiration was also performed from the same nodule. Bronchoalveolar lavage was performed from the left upperlobe.?60 cc of fluid was instilled, fluid return was 20 mL. The endobronchial ultrasound was introduced through the ET tube.? Did not fine any lymph nodes to sample. Samples: 1.? The transbronchial biopsies from ROM nodule were sent for histopathology. 2.? The fine-needle aspiration? from ROM nodule was sent for cytology. 3.? The bronchoalveolar lavage was sent for cytology and microbiology cultures Complications: There was no immediate complications.? Chest x-ray: No pneumothorax Related Problem List Diagnoses (1) Left upper lobe pulmonary nodule: (2) Adenocarcinoma of right lung:
--- NOTE | 2022-01-29 14:43 | ANE.PACU2 ---
Inpatient post-anesthesia follow up: Airway intact: Yes Vital signs: Temperature 98.7 F Pulse Rate 67 Respiratory Rate 18 Blood Pressure 125/81 Pulse Oximetry 94 Oxygen Delivery Me thod Room Air Oxygen Flow Rate Fraction of Inspir ed Oxygen Hydration adequate: Yes Nausea and vomiting: No Pain level: 1 Mental status: Baseline
== END 2022-01-29 14:40 | disposition home or self-care (01) ==
PROVIDERS: PCP Family Medicine; Visit Provider Internal Medicine Pulmonary Disease
PROC: 0BJ08ZZ Inspection of Tracheobronchial Tree, Via Natural or Artificial Opening Endoscopic (ICD-10-PCS; CPT 31622; principal; 2022-01-29 09:05)
PROC: BB4BZZZ Ultrasonography of Pleura (ICD-10-PCS; 2022-01-29 09:05)
DX: R91.8 Other nonspecific abnormal finding of lung field (principal); J44.9 Chronic obstructive pulmonary disease, unspecified; Z85.118 Personal history of other malignant neoplasm of bronchus and lung; Z99.81 Dependence on supplemental oxygen; I10 Essential (primary) hypertension; N40.0 Benign prostatic hyperplasia without lower urinary tract symptoms; Z79.82 Long term (current) use of aspirin; F17.210 Nicotine dependence, cigarettes, uncomplicated
CPT/HCPCS: 31624; 31627; 31654; 71045; 71250; 77011; 80503; 87070; 87205; 88108; 88305; 88307; J1100; J2370; J2405; J3010; J7030

== ENCOUNTER 2022-01-31 13:46 | Outpatient (CLI) | payer OTHER, SELFPAY ==
--- NOTE | 2022-01-31 14:45 | PFTS_ITS ---
Date of Study:01/31/22 Date of Dictation: 02/04/2022 MECHANICS: Postbronchodilator forced vital capacity (FVC) is reduced 2.39 L 58% predicted Postbronchodilator forced expiratory volume in one second (FEV1) is severely reduced. 1.32 L 43% predicted. FEV1/FVC is reduced. There is no significant bronchodilator response. FLOW VOLUME LOOP: Slanting of expiratory limb suggestive of severe airflow obstruction . LUNG VOLUMES: Total lung capacity (TLC) is increased. Residual volume (RV) is increased suggestive of severe air trapping. DIFFUSING CAPACITY FOR CARBON MONOXIDE: Severely reduced 29% INTERPRETATION: The pulmonary function tests are consistent with severe obstructive ventilatory disease on spirometry with severe air trapping on lung volumes and severe gas transfer defect consistent with severe COPD/emphysema. Correlate clinically. MTDD
== END 2022-01-31 13:47 | disposition home or self-care (01) ==
LOC: RT 13:48
PROVIDERS: PCP Family Medicine; Visit Provider Internal Medicine Cardiovascular Disease
DX: R06.02 Shortness of breath (principal)
CPT/HCPCS: 94060; 94618; 94726; 94729

== ENCOUNTER → 2022-02-05 12:45 | Outpatient (BNVA) | payer OTHER, SELFPAY | PROVIDERS: PCP Family Medicine; Visit Provider Internal Medicine Pulmonary Disease | DX: J44.9 Chronic obstructive pulmonary disease, unspecified (principal); F17.210 Nicotine dependence, cigarettes, uncomplicated; C34.91 Malignant neoplasm of unspecified part of right bronchus or lung; R91.1 Solitary pulmonary nodule; Z71.6 Tobacco abuse counseling | CPT/HCPCS: 99214 ==

== ENCOUNTER 2022-02-19 09:51 | Oncology outpatient (recurring) (ONCR) | payer OTHER, SELFPAY ==
--- NOTE | 2022-02-07 13:43 | N.ONRAD NP_ITS ---
Radiation Oncology Consultation Patient Name: Chaitanya Crump Date of : 1945 Date of Service: 02/07/2022 Attending Physician: Alexander Daniel M.D. Chaitanya Crump was seen in consultation this afternoon at the request of Jacky Jennings M.D. for consideration of stereotactic ablative body radiotherapy for the management of a recently diagnosed non-small cell lung cancer. He was evaluated in July 2021 at the [facility] for dyspnea. A chest radiograph identified a right lower lobe nodule. A thoracic CT angiogram obtained on September 19, 2021 demonstrated a 1.7 cm x 1.9 cm x 1 cm right lower lobe lesion. A PET scan (independently visualized in Synapse) ordered on November 03, 2021 described a 1.4 cm x 2.2 cm lower lobe nodule with a maximum SUV of 6.4, a 1.8 cm x 1.2 cm left upper lobe lesion of the (SUV 4.7), and left hilar FDG activity. There is no distant metastatic disease. A bronchoscopy with navigational guided transbronchial biopsies was performed Gurmeet Hawthorne M.D. on December 11, 2021. Intraoperative findings included mucus was present throughout the airways without significant abnormalities. The biopsy from the right lower-lobe nodule diagnosed an invasive, poorly differentiated adenocarcinoma (PD-L1 TPS greater than 50%). No malignancy was identified from the station [address] imaging acquired on January 15, 2022 described the right lower lobe nodule measuring 2.3 cm x 1.8 cm x 2.5 cm and a slight increase of the left upper-lobe lesion. A repeat EBUS with biopsy of the left upper lobe nodule completed on January 29, 2022 revealed benign respiratory epithelium. Pulmonary function testing ordered on January 31, 2022 reported an FVC of 2.7 L (66% of predicted), and FEV1 of 1.4 L (44% of predicted), a TLC of 11.3 L (160% of predicted), an RV of 9.5 L (371% of predicted), and a DLCO of 9.5 mL/min/mmHg (29% of predicted). The patient was evaluated for stereotactic ablative body radiotherapy. I discussed with Mr. Crump the [place] [employer] on Cancer clinical stage IA3 (T1cN0) lung cancer corresponding to his disease and the National Comprehensive Cancer Network Guidelines recommending surgical resection in operable patients. However, for patients deemed medically inoperable, stereotactic radiotherapy is preferable. I reviewed the RTOG 0236 phase II trial that enrolled non-small cell lung cancer patients with peripheral T1 and T2 and medical conditions precluding surgical treatment to SABR. The 3-year primary tumor local control of 97% with an overall median survival of 48 months. I also discussed the SPACE trial that randomized stage I non-small cell lung cancer patients to SABR or conventional fractionated radiotherapy. Progression free survival was improved and a significant decrement in adverse events was documented in the SABR treatment arm. I would endorse an ultra-hypofractionated course of stereotactic radiotherapy. I will order pulmonary function testing prior to treatment. A computed tomographic radiotherapy planning scan in the treatment position will be performed and co-registered to the patient's staging PET CT scan to identify the gross tumor volume. Additionally, a 4-dimensional computed tomographic will be acquired for radiotherapy planning to delineate the internal tumor volume positioning. The potential toxicities of stereotactic body radiotherapy to the lung were reviewed. The patient has verbalized understanding and would like to proceed as recommended. The patient's medical treatment plan was discussed with Jacky Jennings M.D. Signed by: Dr. Alexander Daniel 02/07/2022 1:42:55 PM
--- NOTE | 2022-02-13 | CT_ITS ---
Radiation Therapy Planning CT images; total exam DLP: 671.08 mGy-cm MTDD
== END 2022-02-19 23:59 | disposition home or self-care (01) ==
PROVIDERS: PCP Family Medicine; Referring Provider Internal Medicine Medical Oncology; Visit Provider Radiology Radiation Oncology
DX: Z51.11 Encounter for antineoplastic chemotherapy (principal); C34.31 Malignant neoplasm of lower lobe, right bronchus or lung
CPT/HCPCS: 77263; 77293; 77300; 77301; 77334; 77338; 77373; 77470; 99203

== ENCOUNTER 2022-02-26 08:53 | Oncology outpatient (recurring) (ONCR) | payer OTHER, SELFPAY ==
--- NOTE | 2022-02-26 09:18 | N.ONRD TS_ITS ---
SABR Treatment Summary Patient Name: Chaitanya Crump Date of : 1945 Date of Service: 02/26/2022 Attending Physician: Alexander Daniel M.D. Chaitanya Crump has completed stereotactic ablative body radiotherapy for the management of a recently diagnosed clinical stage IA3 (T1cN0) non-small cell lung cancer. He was evaluated in July 2021 at the [facility] for dyspnea. A chest radiograph identified a right lower lobe nodule. A thoracic CT angiogram obtained on September 19, 2021 demonstrated a 1.7 cm x 1.9 cm x 1 cm right lower lobe lesion. A PET scan ordered on November 03, 2021 described a 1.4 cm x 2.2 cm right lower lobe nodule with a maximum SUV of 6.4, a 1.8 cm x 1.2 cm left upper lobe lesion of the (SUV 4.7), and left hilar FDG activity. There is no distant metastatic disease. A bronchoscopy with navigational guided transbronchial biopsies was performed Gurmeet Hawthorne M.D. on December 11, 2021. Intraoperative findings included mucus was present throughout the airways without significant abnormalities. The biopsy from the right lower-lobe nodule diagnosed an invasive, poorly differentiated adenocarcinoma (PD-L1 TPS greater than 50%). No malignancy was identified from the station [address] imaging acquired on January 15, 2022 described the right lower lobe nodule measuring 2.3 cm x 1.8 cm x 2.5 cm and a slight increase of the left upper-lobe lesion. A repeat EBUS with biopsy of the left upper lobe nodule completed on January 29, 2022 revealed benign respiratory epithelium. Pulmonary function testing ordered on January 31, 2022 reported an FVC of 2.7 L (66% of predicted), and FEV1 of 1.4 L (44% of predicted), a TLC of 11.3 L (160% of predicted), an RV of 9.5 L (371% of predicted), and a DLCO of 9.5 mL/min/mmHg (29% of predicted). SABR was delivered between the dates of February 19, 2022 through February 26, 2022. A prescribed dose of 54 Gy was delivered in three fractions encompassing 8 elapsed days. The right lower-lobe lesion was treated utilizing an intensity modulated radiotherapy plan with a step and shoot treatment technique. The plan required nine gantry angles (160???, 180???, 200???, 220???, 240???, 260???, 280???, 300???, and 320??? with a collimator rotation of 0??? in a partial arc design. The field sizes spanned 4.6 cm x 5 cm to 5.6 cm x 5 cm. The SSDs measured a minimum of 93.2 cm to a maximum of 97 cm. The ports delivered 746 MU, 666 MU, 589 MU, 556 MU, 677 MU, 1063 MU, 833 MU, 946 MU, and 947 MU corresponding to the gantry angles described. Low energy photons were prescribed. All treatments were performed with the Mesh [place] linear accelerator and an isocentric technique. The dose was calculated by Anisotropic Analytic Algorithm with the plan normalized to deliver 100% of the prescription dose to 95% of the planning target volume. Signed by: Dr. Alexander Daniel 02/26/2022 9:16:17 AM
--- NOTE | 2022-02-26 09:45 | ONCRAD TMN_ITS ---
Stereotactic Ablative Radiotherapy Treatment Management Note Patient Name: Chaitanya Crump Date of : 1945 Date of Service: 02/26/2022 Attending Physician: Alexander Daniel M.D. Chaitanya Crump is a 76 year-old white male diagnosed with a clinical stage IA3 (T1cN0) non-small cell lung cancer. He was evaluated in July 2021 at the [facility] for dyspnea. A chest radiograph identified a right lower lobe nodule. A thoracic CT angiogram obtained on September 19, 2021 demonstrated a 1.7 cm x 1.9 cm x 1 cm right lower lobe lesion. A PET scan ordered on November 03, 2021 described a 1.4 cm x 2.2 cm lower lobe nodule with a maximum SUV of 6.4, a 1.8 cm x 1.2 cm left upper lobe lesion of the (SUV 4.7), and left hilar FDG activity. There is no distant metastatic disease. A bronchoscopy with navigational guided transbronchial biopsies was performed Gurmeet Hawthorne M.D. on December 11, 2021. Intraoperative findings included mucus was present throughout the airways without significant abnormalities. The biopsy from the right lower-lobe nodule diagnosed an invasive, poorly differentiated adenocarcinoma (PD-L1 TPS greater than 50%). No malignancy was identified from the station [address] imaging acquired on January 15, 2022 described the right lower lobe nodule measuring 2.3 cm x 1.8 cm x 2.5 cm and a slight increase of the left upper-lobe lesion. A repeat EBUS with biopsy of the left upper lobe nodule completed on January 29, 2022 revealed benign respiratory epithelium. Pulmonary function testing ordered on January 31, 2022 reported an FVC of 2.7 L (66% of predicted), and FEV1 of 1.4 L (44% of predicted), a TLC of 11.3 L (160% of predicted), an RV of 9.5 L (371% of predicted), and a DLCO of 9.5 mL/min/mmHg (29% of predicted). The patient has received 54 Gy of a prescribed 54 Rodriguez (SABR) delivered with an intensity modulated radiotherapy plan utilizing a step and shoot treatment technique. Upon review of systems, he denied any changes in his pulmonary function. On physical examination, the patient weighed 1628lbs. His temperature was 97 ???F and the blood pressure was 117/74 mmHg. The pulse was 74 bpm and his respiratory rate was 16. Oxygen saturation while breathing ambient air was 98%. There was no erythema within the treatment douglass. Stereotactic ablative body radiotherapy was completed today. He will return for post-radiotherapy evaluation in 1 month. Signed by: Dr. Alexander Daniel 02/26/2022 9:43:54 AM
== END 2022-03-21 23:59 | disposition home or self-care (01) ==
PROVIDERS: PCP Family Medicine; Referring Provider Internal Medicine Medical Oncology; Visit Provider Radiology Radiation Oncology
DX: Z51.11 Encounter for antineoplastic chemotherapy (principal); C34.31 Malignant neoplasm of lower lobe, right bronchus or lung
CPT/HCPCS: 77336; 77373; 77435

== ENCOUNTER 2022-04-26 14:11 | Oncology outpatient (recurring) (ONCR) | payer OTHER, SELFPAY ==
--- NOTE | 2022-04-26 14:31 | CTR_ITS ---
PROCEDURE INFORMATION: Exam: CT Chest Without Contrast; Diagnostic Exam date and time: 04/26/2022 2:37 PM Age: 76 years old Clinical indication: Condition or disease; Lung condition and disease; Other: Month scan post sabr; Follow-up oncological assessment; Prior surgery; Additional info: Follow up 3 month scan post sabr TECHNIQUE: Imaging protocol: Diagnostic computed tomography of the chest without contrast. Radiation optimization: All CT scans at this facility use at least one of these dose optimization techniques: automated exposure control; mA and/or kV adjustment per patient size (includes targeted exams where dose is matched to clinical indication); or iterative reconstruction. COMPARISON: 1. CT chest w con* [id number] 01/15/2022 3:[address] chest w con* [id number] 09/19/2021 8:58 AM 3. PT PET scan full body RAD 11/03/2021 9:[address] chest wo con [id number] 12/11/2021 7:11 AM RADIATION DOSE METRICS: Total DLP (mGy-cm): 563.54 FINDINGS: Lungs: There are findings of severe pulmonary emphysema not significantly changed. Lobulated spiculated right lower lobe mass measures 9.5 x 18.9 mm smaller than 14.1 x 27.0 mm on 01/15/2022. There also appears to be greater degree of separation between this mass and the pleural surface. Small area of focal scarring in the right lower lobe image number 53 series 6 anteromedial to the suspicious mass not significantly changed. Scarring in the left upper lobe is stable. The spiculated mass lesion left upper lobe such as image number 16 series 6 measures approximate 11 x 16 mm compared with 12 x 20 mm and is slightly smaller than on 01/15/2019. This corresponds with the abnormal uptake on the recent PET scan. Pleural spaces: There is no pleural effusion or acute infiltrate. Heart: There is moderate atherosclerotic calcification of the coronary arteries. Heart is within normal limits of size. Lymph nodes: Unremarkable. No enlarged lymph nodes. Vasculature: There is atherosclerotic calcification of the aortic arch. There is no thoracic aortic aneurysm. Liver: Hepatic cyst unchanged from previous. Adrenal glands: No adrenal mass is identified. Kidneys and ureters: Left upper pole renal cyst and 1.5 cm sized slightly hyperdense partly calcified renal mass are stable compared with 09/19/2019. Bones/joints: Unremarkable. No acute fracture. Soft tissues: Unremarkable. Other findings: No new mass lesion is demonstrated. CT/CT chest wo con [id number] IMPRESSION: 1. Findings of pulmonary malignancy showing improvement compared with 01/15/2022. 2. COPD and other non malignant findings in the upper abdomen are stable. COMMENTS: Consistent with the [employer]'s Incidental Findings Committee white paper (J Am [place] Radiol 2018): Any incidental renal lesion less than 1 cm or classified as too small to characterize, or any incidental cystic renal lesion characterized as simple-appearing, is likely benign. No follow-up imaging is recommended for these lesions per consensus recommendations based on imaging criteria.
== END 2022-05-22 23:59 | disposition home or self-care (01) ==
LOC: RAD 14:12 → ONCMED 05-02 06:11
PROVIDERS: PCP Family Medicine; Referring Provider Internal Medicine Medical Oncology; Visit Provider Radiology Radiation Oncology
DX: C34.91 Malignant neoplasm of unspecified part of right bronchus or lung (principal)
CPT/HCPCS: 71250

== ENCOUNTER → 2022-05-13 09:59 | Outpatient (BNVA) | payer OTHER, SELFPAY | PROVIDERS: PCP Family Medicine; Visit Provider Internal Medicine Pulmonary Disease | DX: J44.9 Chronic obstructive pulmonary disease, unspecified (principal); R91.1 Solitary pulmonary nodule; Z71.6 Tobacco abuse counseling; C34.31 Malignant neoplasm of lower lobe, right bronchus or lung; F17.210 Nicotine dependence, cigarettes, uncomplicated; I25.10 Atherosclerotic heart disease of native coronary artery without angina pectoris | CPT/HCPCS: 99214 ==

== ENCOUNTER → 2022-06-19 14:47 | Outpatient (BNVA) | payer OTHER, SELFPAY | PROVIDERS: PCP Family Medicine; Visit Provider Specialist | DX: G25.0 Essential tremor (principal); G50.0 Trigeminal neuralgia; G31.84 Mild cognitive impairment of uncertain or unknown etiology | CPT/HCPCS: 99214; 99215 ==

== ENCOUNTER → 2022-07-31 15:01 | Outpatient (BNVA) | payer OTHER, SELFPAY | PROVIDERS: PCP Family Medicine; Visit Provider Specialist | DX: G50.0 Trigeminal neuralgia (principal); G25.0 Essential tremor; G31.84 Mild cognitive impairment of uncertain or unknown etiology | CPT/HCPCS: 99214 ==

== ENCOUNTER 2022-08-21 07:58 | Outpatient (CLI) | payer OTHER, SELFPAY | END 2022-08-21 07:59 | disposition home or self-care (01) | LOC: RT 08:00 | PROVIDERS: PCP Family Medicine; Visit Provider Internal Medicine Pulmonary Disease | DX: R06.02 Shortness of breath (principal) | CPT/HCPCS: 94060; 94618; 94726; 94729; J7613 ==

== ENCOUNTER 2022-09-10 16:41 | Outpatient (CLI) | payer OTHER, SELFPAY ==
--- NOTE | 2022-09-10 16:30 | CT_ITS ---
WS: [id number] CT CHEST WITHOUT INTRAVENOUS CONTRAST HISTORY: Follow-up lung cancer. TECHNIQUE: Contiguous 5 mm axial imaging performed on the thorax. Coronal and sagittal reformats are submitted. All CT scans at [facility] use at least one of these dose optimization techniques: automated exposure control; mA and/or kV adjustment per patient size (includes targeted exams where dose is matched to clinical indication); or iterative reconstruction. CONTRAST: None DLP: 532.74 mGy.cm COMPARISON: 04/26/2022, 01/15/2022 and PET/CT 11/03/2021 Lungs and central airway: Severe pulmonary hyperexpansion and emphysema. Spiculated known neoplasm in the RIGHT lower lobe measures 15 x 13 mm and extends over a length of 14 mm. Not significantly kennedy ed in size. Visually there does appear to be slight improvement. There is a new spiculated nodule harrison suring 7 mm at the RIGHT lung base on image 57 of series 4. Spiculated mass with adjacent tethering a nd spiculation LEFT upper lobe measures 21 x 11 mm extending over length of 22 mm. There is pleural t hickening and tethering extending towards the apex and the pleural surfaces. This nodule is slightly greater in size as compared to the prior study. New solid lobulated nodule is identified at the LEFT hilum extending into the LEFT lower lobe measuring 18 x 22 mm. Pleura: Normal. No pleural effusion. Heart and pericardium: Normal size heart with no pericardial effusion. Mediastinum and marco antonio: On this unenhanced study no definite enlarging or new lymph nodes. Vessels: Mild atherosclerosis aorta. No aneurysm. Normal size pulmonary artery. Chest wall and lower neck: No soft tissue masses. Upper abdomen: Cystic mass RIGHT lobe of liver 3.2 x 3.6 cm. Incompletely visualized large cyst assoc iated with the LEFT kidney measures 4.6 x 4.5 cm. No adrenal mass. Osseous structures: Osteopenia. No destructive bone lesion. CT/CT chest wo con [id number] IMPRESSION: 1. New lobulated LEFT lower lobe nodule measuring 18 x 22 mm. Suspicious for m etastatic site. 2. New 7 mm spiculated nodule at the RIGHT lung base. 3. Very slight decrease in size of the RIGHT lower lobe known neoplasm since now measuring 15 x 13 mm. 4. Slight increase in size of the spiculated nodule with adjacent atelectasis and pleural tethering LEFT upper lobe now measuring 21 x 11 mm. 5. On this unenhanced evaluation no enlarging or new lymph nodes identified in the mediastinum or hilum. 6. Hepatic and LEFT renal cyst.
== END 2022-09-10 16:42 | disposition home or self-care (01) ==
LOC: RAD 16:43
PROVIDERS: PCP Family Medicine; Visit Provider Internal Medicine Pulmonary Disease
DX: Z12.2 Encounter for screening for malignant neoplasm of respiratory organs (principal); C34.91 Malignant neoplasm of unspecified part of right bronchus or lung; R91.1 Solitary pulmonary nodule; F17.210 Nicotine dependence, cigarettes, uncomplicated; J44.9 Chronic obstructive pulmonary disease, unspecified; Z71.6 Tobacco abuse counseling
CPT/HCPCS: 71250; 99214

== ENCOUNTER → 2022-09-11 13:22 | Outpatient (BNVA) | payer OTHER, SELFPAY | PROVIDERS: PCP Family Medicine; Visit Provider Internal Medicine Cardiovascular Disease | DX: R94.39 Abnormal result of other cardiovascular function study (principal); J44.9 Chronic obstructive pulmonary disease, unspecified; C34.90 Malignant neoplasm of unspecified part of unspecified bronchus or lung; G25.0 Essential tremor; G31.84 Mild cognitive impairment of uncertain or unknown etiology; F17.210 Nicotine dependence, cigarettes, uncomplicated; I49.3 Ventricular premature depolarization; R94.31 Abnormal electrocardiogram [ECG] [EKG] | CPT/HCPCS: 93005; 99215 ==

== ENCOUNTER 2022-09-24 05:23 | Day surgery (SDC) | payer OTHER, SELFPAY ==
[2022-09-20 08:33] VITALS: BMI 17.6
[2022-09-24] VITALS (11 sets, daily range): BP systolic 108–145; BP diastolic 58–85; PULSE 66–90; RESP 16–26; TEMP 36.4–36.7; O2SAT 91–100
[2022-09-24] MEDS: sodium chloride 0.9% 1,000 ML 30 ML IV (06:27)
--- NOTE | 2022-09-24 06:44 | W.PM.OPSUD ---
Surgery/Procedure H&P Update DATE OF PROCEDURE: September 24, 2022 DATE H&P PERFORMED: 09/10/22 CHANGES TO PREVIOUS DOCUMENTATION: None PREOP DIAGNOSIS: Lung nodule PRIMARY INDICATION FOR PROCEDURE: Previous right lower lobe poorly differentiated adenocarcinoma stage I A3 s/p radiation-surveillance CT showing new lobulated LLL nodule 18 x 22 mm suspicious for metastatic site and also slight increase in the size of spiculated nodule with adjacent atelectasis and pleural tethering left upper lobe PLANNED PROCEDURE: Operation Date: 09/24/22 07:00 Proposed Procedures p Ion Robotic Assisted Bronchoscopy [id number], [id number], 80714, 77353, 66654, 06398, 00299, 19897, 60182, 20697(Not Applicable) - Gurmeet Hawthorne MD s Ebus(Not Applicable) - Gurmeet Hawthorne MD
--- NOTE | 2022-09-24 07:22 | SC_ITS ---
WS: [id number] C-arm fluoroscopy for left upper lobe bronchoscopy, 09/24/2022 Clinical Data: bronch Comparison: CT chest, 09/10/2022 Findings: Dr. Hawthorne performed left upper lobe bronchoscopy. [facility]/C-arm FL for Bronchoscopy Impression: Left upper lobe bronchoscopy.
--- NOTE | 2022-09-24 08:03 | ANES.PREANE2 ---
Pre-Anesthetic Assessment Height/Weight: Height 1.78 m Weight 55.792 kg Temp Pulse Resp BP Pulse Ox O2 Del Method 97.5 F L 78 18 145/85 97 09/24/22 06:11 09/24/22 06:11 09/24/22 06:11 09/24/22 06:11 09/24/22 06:11 09/24/22 06:11 Preop Diagnosis: Lung nodule Operation Date: 09/24/22 07:00 Proposed Procedures p Ion Robotic Assisted Bronchoscopy 84124, 90324, 65532, 11184, 17982, 75393, 93813, 26378, 62828, 66192(Not Applicable) - Gurmeet Hawthorne MD s Ebus(Not Applicable) - Gurmeet Hawthorne MD Familial anesthetic complications: none Was Beta Jesse taken within 24 hours: N/A Was Clonidine taken within 24 hours: N/A Last intake: Intake Last Liquid Date 09/23/22 Last Liquid Time 23:55 Last Solid Date 09/23/22 Last Solid Time 21:00 Social Alcohol and Tobacco Exam alert, oriented x 3 and regular rate & rhythm rhonchi Airway Submandibular: within normal limits Cervical ROM: within normal limits Mallampati: Class II Dentition: false Pulmonary Chronic Obstructive Pulmonary Disease lung mass CV/HEM Hypertension Stress test 12/11 sounded equivocal but good exercise tolerance Neuropsych tremor, migraine Anesthetic Plan ASA status: 3 Anesthesia: General Medications/Allergies Home Medications Medication Instructions Recorded Confirmed Last Taken Type tamsulosin 0.4 mg capsule 0.4 mg PO DAILY 12/08/19 09/20/22 09/23/22 History amitriptyline 25 mg tablet 25 mg PO DAILY #90 tabs 07/31/22 09/20/22 09/22/22 Rx donepezil 5 mg tablet (Aricept) 5 mg PO DAILY #90 tabs 07/31/22 09/20/22 09/23/22 Rx gabapentin 800 mg tablet 400 mg PO BID #180 tabs 07/31/22 09/20/22 09/23/22 Rx lamotrigine 150 mg tablet 150 mg PO BID #60 tabs 07/31/22 09/20/22 09/23/22 Rx (Lamictal) budesonide 160 mcg-glycopyr 9 2 inh inhalation BID #10.7 grams 09/10/22 09/24/22 Unknown Rx mcg-formot 4.8 mcg/actuation HFA inhaler (Breztri Aerosphere) aspirin 81 mg tablet,delayed 81 mg PO DAILY PRN Pain 09/20/22 09/24/22 09/17/22 History release (Adult Aspirin Regimen) Allergies Allergy/AdvReac Type Severity Reaction Status Date / Time acetaminophen [From Tylenol] Allergy hives/flush Verified 09/20/22 08:25 ed Current Medications Generic Name Dose Route Start Last Admin Trade Name Freq PRN Reason Stop Dose Admin Sodium Chloride 1,000 mls @ 30 mls/hr 09/24/22 06:15 09/24/22 06:27 Sodium Chloride 0.9% IV 09/25/22 06:14 30 mls/hr .Q24H DYLLAN Administration PFSH Anesthesia Medical History (Updated 09/11/22 @ 17:13 by Tiffany Parikh MD) Abnormal cardiovascular stress test Anxiety disorder Benign prostatic hyperplasia COPD (chronic obstructive pulmonary disease) Disc degeneration Gastroesophageal reflux disease Gross hematuria Malignant neoplasm of bladder Polycythemia vera Pulmonary nodule, right Tobacco abuse Surgical History No pertinent past surgical history Family History Mother , at age 95 Renal failure Father , in his 60's Cancer colon Social History Smoking and tobacco status: current every day smoker cigarettes Packs smoked per day: 3 Years cigarettes smoked: 67 [ Other cigarette details: 67 years; 0.5ppd currently] Alcohol intake: current Alcohol intake frequency: few times a month Marital status: Current occupational status: retired History of recent travel: No Data Anesthesia Cardiac Studies: Sestamibi Stress Test (Cardiology) 12/05/21
--- NOTE | 2022-09-24 08:35 | P.OP_ITS ---
Operative Report Date of procedure: September 24, 2022 Pre-op diagnosis: Preop Diagnosis suspected malignancy Post-op diagnosis: Malignancy Procedure done: 50239 Dx Bronchoscope w/Washings or airway inspection 50204 Bx Bronchoscope w/Brushings or protected brushings 26064 Dx Bronchoscope w/BAL 17743 Bronch with computer image guided Navigational Bronchoscopy 69598 Bronchoscopy w/Transbronchial needle aspiration biopsy(s), tracheal, main stem, and/or lobar bronchus 20378 w/Transbronchial lung biopsy(s), each additional lobe (list separately, in addition to code for primary procedure) 73660 w/Transbronchial needle aspiration biopsy(s), each additional lobe (list separately, in addition to code for primary procedure) 69610 Bronchoscopy w/ therapeutic aspiration of the tracheobronchial tree (clearance of airway secretions, removal of mucus plugs) 63763 EBUS Diag or Interven Peripheral lesion (radial EBUS) Surgeon: Gurmeet Hawthorne MD, [facility] Brief History: Mr. 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 Slight increase in size of spiculated nodule with adjacent atelectasis and pleural tethering left upper lobe now measuring 21 x 11 mm (this was negative on previous biopsy in January 2022) Today scheduled for bronchoscopic evaluation using robotic navigational system to obtain biopsies of right lower lobe lesion as well as endobronchial ultrasound-guided surveillance and possible fine-needle aspiration of hilar/mediastinal lymph nodes Procedure: 40177 Dx Bronchoscope w/Washings or airway inspection 45406 Bx Bronchoscope w/Brushings or protected brushings 81987 Dx Bronchoscope w/BAL 29910 Bronch with computer image guided Navigational Bronchoscopy 46707 Bronchoscopy w/Transbronchial needle aspiration biopsy(s), tracheal, main stem, and/or lobar bronchus 34977 w/Transbronchial lung biopsy(s), each additional lobe (list separately, in addition to code for primary procedure) 12741 w/Transbronchial needle aspiration biopsy(s), each additional lobe (list separately, in addition to code for primary procedure) 85283 Bronchoscopy w/ therapeutic aspiration of the tracheobronchial tree (clearance of airway secretions, removal of mucus plugs) 58394 EBUS Diag or Interven Peripheral lesion (radial EBUS) Indication: CT chest 09/10/2022-showing new lobulated left lower lobe nodule measuring 18 x 22 suspicious for metastatic site. Slight increase in size of spiculated nodule with adjacent atelectasis and pleural tethering left upper lobe now measuring 21 x 11 mm (this was negative on previous biopsy in January 2022. Anesthesia: General anesthesia. Local anesthesia: The michael in the right and left mainstem bronchi were anesthetized with 1% lidocaine, 3 mL. Description of the procedure: The procedure was explained to the patient and the consent was obtained.? The patient was brought to the OR.? The patient underwent endotracheal intubation for general anesthesia.? Following induction of general anesthesia, the flexible bronchoscope used for? initial inspection (76283)?and airway clearance?(04574).? The scope was advanced through the ET tube.? The lower trachea mucosa appeared normal, no endotracheal lesion was seen.? The michael was sharp.? The michael, the right and left mainstem bronchi are anesthetized with 1% lidocaine.? In a systematic manner bilateral bronchial tree was then examined.?? The bronchoscope was then introduced into the right mainstem bronchus.? The right upper lobe, right middle lobe and right lower lobe bronchi were examined up to the third subsegmental level and no abnormalities were identified.?? There were significant mucus secretions which were suctioned right away. The bronchoscope was advanced into the left mainstem bronchus.? The mucosa appeared normal with no endobronchial lesions.? The left upper lobe, lingula and left lower lobe bronchi were examined up to the third subsegmental level and no abnormalities were identified.? Mucosa appeared normal with no endobronchial lesion, active bleeding or mucous plug.? There were significant mucus secretions in lower lobe-which were suctioned right away. After initial inspection as well as?airway clearance with flexible bronchoscope(80025),?ION robotic assisted navigational bronchoscope?(45515)?was introduced-and left lower lobe lesion was accessed.? After confirming the location with?radial EBUS (55666), under the fluoroscopy guidance??-we were able to obtain biopsies using fine-needle, forceps.? 1 pass with each of these instruments were used for touch prep and sent for rapid onsite evaluation- pathology reported seeing malignant cells. Total 4 passes were made with fine- needle and 4 passes were made with forceps and all the samples were placed in formalin for histopathology examination. Bronchoalveolar lavage was performed from the right lower lobe, 10 mL of saline was instilled, fluid return was 6 mL.? The fluid was mixed with blood and specks of tissue. Then-again using ION robotic assisted navigational bronchoscope?-and left upper lobe lesion was accessed.? After confirming the location with?radial EBUS (01596), under the fluoroscopy guidance??-we were able to obtain biopsies using brush, fine-needle, forceps.? 1 pass with each of these instruments were used for touch prep and sent for rapid onsite evaluation-pathology reported seeing atypical cells. Total 4 passes were made with fine-needle and 4 passes were made with forceps and all the samples were placed in formalin for histopathology examination. There was some evidence of bleeding-cold saline was instilled and after making sure there is no active bleeding,?ION robotic assisted navigational bronchoscope was retracted and procedure terminated. ? Samples: A.Left lower lobe lesion 1. Total of 4 passes were made using?needle aspiration(06166); 1 pass used for touch prep - reported positive for malignancy; remaining 3 passes?were placed in formalin for histopathology 2.Targeting the same area 4 passes were made using?forceps?(35482); 1 pass used for touch prep - reported positive for malignancy; remaining 3 passes?were placed in formalin for histopathology 3.? Bronchoalveolar lavage?(77197)?from left lower lobe sent for cytology A.Left upper lobe lesion 1. 1 passes with?Cytobrush?(98382 )?performed-1 pass used for touch prep - reported atypical cells;and rest of the tissue was placed in formalin and sent for histopathology. 2. Targeting the same area - Total of 4 passes were made using?needle aspiration(94160); 1 pass used for touch prep - reported negative for malignancy; remaining 3 passes?were placed in formalin for histopathology 2.Targeting the same area 4 passes were made using?forceps?(37289); 1 pass used for touch prep - reported atypical cells; remaining 3 passes?were placed in formalin for histopathology Complications: None.The patient was extubated and brought to the PACU in stable condition. Postprocedure chest x-ray:? No evidence of pneumothorax Disposition: Patient can be discharged home in stable condition. ? Pt, and his accompanying friend are aware that I am going to call them? to update final biopsy results once available.
--- NOTE | 2022-09-24 09:00 | XR_ITS ---
WS: [id number] Portable AP upright chest, 09/24/2022 Clinical Data: post ion bronch Comparison: Portable chest, 01/29/2022 Findings: No nodules, masses or effusions are seen. The heart is normal. The pulmonary vascularity is not increased. No pneumonia or pneumothorax is seen. The diaphragms are flattened. The aortic arch a nd descending thoracic aorta show tortuosity. There is a slight dextroscoliosis. XR/XR chest 1V portable 72345 Impression: Negative for pneumothorax following left bronchoscopy.
[2022-09-24 10:43] LABS: Cyto Order Verification Order Verified
--- NOTE | 2022-09-24 13:46 | ANE.PACU2 ---
Inpatient post-anesthesia follow up: Airway intact: Yes Vital signs: Temperature 98.1 F Pulse Rate 74 Respiratory Rate 18 Blood Pressure 113/64 Pulse Oximetry 95 Oxygen Delivery Me thod Room Air Oxygen Flow Rate 2 Fraction of Inspir ed Oxygen Hydration adequate: Yes Nausea and vomiting: No Pain level: 2 Mental status: Baseline
== END 2022-09-24 10:10 | disposition home or self-care (01) ==
PROVIDERS: PCP Family Medicine; Visit Provider Internal Medicine Pulmonary Disease
PROC: 0BJ08ZZ Inspection of Tracheobronchial Tree, Via Natural or Artificial Opening Endoscopic (ICD-10-PCS; CPT 31622; principal; 2022-09-24 07:00)
PROC: BB4BZZZ Ultrasonography of Pleura (ICD-10-PCS; 2022-09-24 07:00)
DX: C34.32 Malignant neoplasm of lower lobe, left bronchus or lung (principal); J44.9 Chronic obstructive pulmonary disease, unspecified; I10 Essential (primary) hypertension; N40.0 Benign prostatic hyperplasia without lower urinary tract symptoms; F17.210 Nicotine dependence, cigarettes, uncomplicated
CPT/HCPCS: 31623; 31624; 31627; 31628; 31629; 31632; 31633; 31645; 31654; 71045; 76000; 80503; 88108; 88305; 88342; J1100; J2370; J2405; J2704; J3010; J3490; J7030

== ENCOUNTER 2022-09-28 08:30 | Outpatient (CLI) | payer OTHER, SELFPAY ==
--- NOTE | 2022-09-28 09:15 | PETR_ITS ---
PROCEDURE INFORMATION: Exam: PET/CT Skull Base to Mid-thigh Exam date and time: 09/28/2022 9:34 AM Age: 77 years old Clinical indication: Condition or disease; Primary cancer: HX of lung cancer, abnormal CT; Follow-up oncological assessment; Condition/disease: Previously treated lung cancer with new suspicious nodule, 09/10/22 CT chest. There is a provided history of biopsy within the last month and radiation therapy approximately 1 month ago. No history of chemotherapy. LABS AND CLINICAL REPORTS: Glucose: 97 mg/dl Treatment strategy for malignancy (PET staging): Restaging (PS) TECHNIQUE: Imaging protocol: Following at least four-hour fasting and following the injection of F-18-FDG, low dose CT images were obtained. Then, PET images were obtained. Attenuation corrected images were constructed using the CT scan. Fused images of PET and CT were reviewed. The standardized uptake values (SUV) reported below are maximum values within a region of interest, expressed in gm/ml. Exam includes orbital meatal line to mid-thigh. Radiopharmaceutical: 12.74 mCi F-18 FDG (Fluorodeoxyglucose), IV. Time of imaging post radiopharmaceutical administration: 1 hour Injection site: Nonspecified COMPARISON: CT chest 09/10/2022, PT PET Scan Full Body RAD 11/03/2021 9:40 AM FINDINGS: Brain: Visualized brain has normal physiologic uptake. Pharynx: No abnormal uptake. Larynx: No abnormal uptake. Lungs, pleura and trachea: A spiculated left upper lobe nodule measuring 1.9 x 1.1 cm on series 3, image 47 demonstrates an SUV max 5.8 (similar in size compared with the prior PET-CT where it demonstrated an SUV max 4.7). A medial left lower lobe spiculated nodule measuring 1.9 cm in diameter on series 3, image 58 demonstrates an SUV max 9.8 and is new since the prior PET-CT. A previously noted radiotracer avid right lower lobe nodule is decreased in size since the prior PET-CT measuring 1.3 x 0.9 cm on series 3, image 80 with an SUV max 1.6 (previously 6.4). Streaky linear density along the posterior inferior right lower lobe on series 3, image 90 for example is not radiotracer avid and is new since the prior PET-CT suggestive of scarring. A previously noted new approximately 7 mm nodular density in the inferior right lower lobe on the chest CT of 09/10/2022 appears similar on series 3, image 86 and is not radiotracer avid. [id number] bilateral centrilobular emphysematous changes are present. Similar non radiotracer avid areas of streaky pleural based density in the lung apices. Heart: Normal physiologic uptake. Mediastinal space: No abnormal uptake. Liver: No abnormal uptake. A non radiotracer avid simple appearing right liver lobe cyst measures 3.7 cm in diameter. Gallbladder and bile ducts: No abnormal uptake. Moderate distention of the gallbladder. Pancreas: No abnormal uptake. Spleen: No abnormal uptake. Adrenal glands: No abnormal uptake. Kidneys and ureters: Normal physiologic uptake. Similar appearing severe prominence of the left intrarenal collecting system without evidence of hydroureter. A non radiotracer avid peripherally calcified lesion arising from the superior pole of the left kidney measuring approximately 1.1 cm in diameter on series 3, image 95 is noted. Unremarkable right kidney. Stomach and bowel: No abnormal uptake. There are scattered colonic diverticula. Reproductive: Moderately prominent prostate gland without elevated uptake. Vasculature: No abnormal uptake. There are diffuse atherosclerotic changes including within the coronary arteries. Lymph nodes: New mildly prominent radiotracer avid subcarinal lymph nodes with an overall measurement of approximately 2.4 x 1.1 cm, SUV max 5.0. New uptake in the right hilar region, SUV max 5.5. New small focus of elevated uptake in the left hilar region without a well-defined lymph node, SUV max 3.8 on series 4, image 57. Assessment of lymph node size is limited without intravenous contrast. Bones/joints: No abnormal uptake in the visualized axial and appendicular skeleton. Degenerative spondylosis throughout the spine is noted. Moderate thoracic spine kyphosis. Mild curvature of the lumbar spine convex to the left is noted. Soft tissues: No abnormal uptake in the visualized head, neck, chest, abdomen, pelvis, and extremities. METRICS: Mediastinal blood pool: SUV max 1.5 PET/PET [facility] SUBSEQ [id number] IMPRESSION: 1. Significant interval decrease in size of a previously noted radiotracer avid right lower lobe nodule compared with the prior PET-CT with interval resolution of abnormal uptake consistent with interval response to therapy. 2. Similar size morphology of a spiculated left upper lobe nodule with interval increase in uptake (SUV max 5.8, previously 4.7) consistent with increased neoplastic involvement. 3. New medial left lower lobe radiotracer avid nodule since the prior PET-CT with elevated uptake (SUV max 9.8) compatible with malignancy. 4. New approximately 7 mm inferior right lower lobe nodule since the prior PET-CT without elevated uptake. Assessment of small nodules can be limited by PET-CT. 5. New radiotracer avid lymph nodes in the subcarinal space and bilateral hilar regions concerning for malignancy. 6. Simple appearing hepatic cyst. 7. Chronic appearing extensive left hydronephrosis without hydroureter suggestive of ureteropelvic junction obstruction. A peripherally calcified lesion in the superior pole of the left kidney is noted and although no elevated uptake is noted in this region assessment of renal lesions can be limited by PET-CT. MRI with and without contrast with renal lesion protocol is recommended for further evaluation if this has not been performed. 8. Moderate prominence of the prostate gland. 9. Additional nonurgent findings as detailed above.
== END 2022-09-28 08:31 | disposition home or self-care (01) ==
LOC: RAD 09-30 05:46
PROVIDERS: PCP Family Medicine; Visit Provider Internal Medicine Pulmonary Disease
DX: C34.91 Malignant neoplasm of unspecified part of right bronchus or lung (principal); R91.1 Solitary pulmonary nodule; K76.89 Other specified diseases of liver
CPT/HCPCS: 78815; A9552

== ENCOUNTER 2022-10-01 06:05 | Outpatient (CLI) | payer OTHER, SELFPAY ==
[2022-10-01] VITALS (18 sets, daily range): BP systolic 126–163; BP diastolic 75–95; PULSE 61–85; RESP 12–29; TEMP 36.5; O2SAT 90–97; BMI 18.6
--- NOTE | 2022-10-01 06:00 | XACV_ITS ---
Exam Room: 2 Ht: 178 cm Wt: 59 kg BSA: 1.69 m2 Gender: Male : 1945 Exam Priority: Routine Procedure(s): Procedure Description: Diagnostic procedure Procedure Description: Left Heart Catheterization Procedure Description: Coronary Angiography Diagnostic Cath Status: Elective Diagnostic Findings * INDICATION: Dyspnea on exertion/abnormal stress test. * Mid Right Coronary Artery to Distal Right Coronary Artery: moderate to severe 60-70% stenosis, [place]: 3 flow. * Left Main has no disease. * Circumflex has no disease. * Proximal Left Anterior Descending: minimal 30% stenosis, [place]: 3 flow. * Coronary angiography shows right dominance. Conclusions 1. Moderate RCA stenosis. 2. Normal left ventricular systolic function. Ejection fraction of 50%. Recommendations * Aggressive risk factor modification. * Outpatient cardiology follow up in 4 weeks. Interventional RX Recommendation: none Diagnostic RX Recommendation: medical therapy and/or counseling Anticoagulation: Heparin Ventriculography Ejection Fraction: 50.0 % Pressures Phase:Rest AO : 118 / 67 ( 89 ) @ 7:29:00 AM 122 / 71 ( 94 ) @ 7:34:00 AM 152 / 71 ( 104 ) @ 7:39:00 AM 153 / 71 ( 104 ) @ 7:39:00 AM LV : 153 / -12 / 12 @ 7:38:00 AM 146 / -9 / 14 @ 7:38:00 AM 149 / -10 / 15 @ 7:39:00 AM Valves Phase:DefaultPhase AV : 0.0 @ 7:51:45 AM 0.0 @ 7:51:45 AM AV Mean Gradient: 0.0 @ 7:51:45 AM 0.0 @ 7:51:45 AM Clinical Evaluation EBL: 5mL-10mL Procedural Details Procedure Consent Obtained. Admit Source: Out Patient. Pre-Procedure Time Out. Identified patient by full name and date of as verbalized by the patient/guarantor. Does the consent match the physician's order: Yes. Accurate & Complete Informed Consent: Yes. Inpatient/Outpatient History & Physical on Chart: Yes. If H&P is completed, is and addenduem needed: No; If yes, is the addendum complete: N/A. Visualize and Verify Site with Patient/Guarantor: N/A. Relevant Radiology Images available: N/A. The risks, benefits, and alternatives of sedation and/or procedure were discussed by physician. The patient agrees to continue. Procedure started. Current diagnosis: Chest Pain. Correct patient, site and procedure confirmed by cath team. Cardiovascular Instability: No. PERRLA. Strong, equal hand tray drier bilaterally. Lungs clear x 5 lobes. IV Site on Arrival: 20 gauge in the left anticubital. IV Fluids: 0.9% NaCl at KVO. 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 Pre Procedural Pulses: bilateral radial was 3+. Pre Procedural Pulses: bilateral posterior tibial was Doppled. Pre Procedural Pulses: right dorsalis pedis was Doppled. Pre Procedural Pulses: left dorsalis pedis was 3+. Oxygen started at 2liters/min via nasal canula. right groin was prepped with chloroprep then draped in the usual sterile fashion. right radial was prepped with chloroprep then draped in the usual sterile fashion. Physician notified. Baseline sample Acquired. HR: 68 BPM. [facility] Clinical Fraility Score: 6: Moderately Frail. Adjustment Supervisor Indications:minaya and abnormal stress test. Chest Pain Symptom Assessment: Atypical Angina. Physician arrived. Physician scrubbed in. Immediate Pre-Procedure Time Out. Correct Patient: Yes; Correct Procedure: Yes; Correct Site: Yes; Correct Patient Position: Yes; Correct Supplies: Yes; Dried Flammable Prep: Yes; Blood Products Available: N/A;. Lidocaine 1% infiltrated to the right radial. Arterial access obtained. A 5 azeri TIG catheter in over wire. Multiple views taken of left coronary artery. Catheter redirected to the RCA. Multiple views taken of right coronary artery. Catheter removed over the exchange wire. A 5 azeri Angled Pig catheter in over wire. EDP Sample taken: LV 153/-13,12; HR: 72 BPM; SpO2: 100%. LV gram performed in CHRISTOPHER @ 10 mL/second for a total of 30 mL. EDP Sample taken: LV 146/-10,14; HR: 70 BPM; SpO2: 100%. Pullback taken: LV 149/-11,15; AO 152/71(104); Mean: 0mmHg, Peak to Peak: 0mmHg, SEP: 6sec/min; HR: 71 BPM; SpO2: 100%. Catheter out. Wire out. A TR Band was successful obtaining hemostatsis at the Right Radial artery insertion site. Post Procedure: Pulses reassessed and unchanged. PERRLA. Strong, equal hand tray drier bilaterally. No VTE prophylaxis required. Medication's Wasted: Nitro = 49.8 mg. Medication's Wasted: Heparin = 1000 units. Medication's Wasted: Other = versed 1 mL. Medication's Wasted: Other = fentanyl 100 mcg. Total IV fluids: 50 mL. Post-op diagnosis: moderate Mid RCA stenosis, non-obstructive CAD. Complications: none. Estimated blood loss: 5mL-10mL. Responsiveness - Normal response to verbal stimuli; alert and oriented, PERRLA. Airway - Unaffected, no intervention required; spontaneous ventilation. Circulation: W/N/L, pulses unchanged. Nausea/Vomiting: No. Procedure completed. Patient transferred by wheelchair to CPRU. Vital chart was stopped. Access Site Site: Right Radial artery Sheath Size: 6 Fr Hemostasis Method: TR Band Hemostasis Success: Successful Procedure Medications Start: 7:25 AM Stop: 7:25 AM Medication: Versed Amount: 1 mg Route: I.V. Start: 7:27 AM Stop: 7:27 AM Medication: Nitrogylcerin Amount: 200 mcg Route: I.A. Start: 7:28 AM Stop: 7:28 AM Medication: Heparin Amount: 5000 units Route: I.V. I, the attending physician, have reviewed and verified all procedure medications. Yes, all medications given per verbal order History/Risk Factors Hypertension: No Dyslipidemia: No Peripheral Arterial Disease (PAD): No Myocardial Infarction ([place]): No Obesity: No Tobacco Use: Current/Recent(w/in 1 year) Prior Interventions PCI: No CABG: No Valve Surgery: No Report Signatures Finalized by Andrew Silverman MD on 10/02/2022 07:50 AM
[2022-10-01] MEDS: diphenhydrAMINE 50 mg Capsule PO (06:20)
[2022-10-01 06:39] LABS: Basophils # 0.1 10^3/uL (0.0-0.1); Basophils % 0.8 %; Eosinophils # 0.6 10^3/uL (0.0-0.8); Eosinophils % 5.7 %; Hematocrit 48.1 % (42.0-52.0); Hemoglobin 15.8 g/dL (11.7-16.6); Lymphocytes # 1.6 10^3/uL (0.8-4.8); Lymphocytes % 16.3 %; Mean Corpuscular HGB Conc 32.8 g/dL (30.0-36.0); Mean Corpuscular Hemoglobin 33.2 pg (28.0-34.0); Mean Corpuscular Volume 101.1 fl (80-94); Mean Platelet Volume 8.9 fL (7.4-10.4); Monocytes # 0.8 10^3/uL (0.2-0.9); Monocytes % 8.4 %; Neutrophils # 6.62 10^3/uL (1.8-7.7); Neutrophils % 68.2 %; Nucleated Red Blood Cells % 0 %; Platelet Count 292 10^3/cmm (130-400); Red Blood Count 4.76 10^6/uL (4.1-5.3); Red Cell Distribution Width 13.6 % (12.1-15.1); White Blood Count 9.7 10^3/uL (4.0-10.0)
[2022-10-01 06:53] LABS: Anion Gap 16.7 (5-19); Blood Urea Nitrogen 10 mg/dL (8-23); Calcium 9.5 mg/dL (8.5-10.5); Carbon Dioxide 30 mmol/L (22-29); Chloride 98 mmol/L (98-107); Glucose 94 mg/dL (65-115); Osmolality Calculated 291 mOsm/kg (285-295); Potassium 3.7 mmol/L (3.5-5.1); Sodium 141 mmol/L (136-145)
--- NOTE | 2022-10-01 06:55 | PC.NURSE ---
Around 0620: Patient states they took 300 mg Plavix PO on 09/30/22, at 1900, and 75 mg Plavix PO this morning at [address] Parikh, Application Operations Engineer.
--- NOTE | 2022-10-01 07:22 | W.PM.OPSUD ---
Surgery/Procedure H&P Update DATE OF PROCEDURE: October 01, 2022 DATE H&P PERFORMED: 09/11/22 H&P UPDATE INFORMATION: I have reviewed H&P completed within last 30 days, I have examined patient prior to procedure and No changes to prior documentation PREOP DIAGNOSIS: Dyspnea on exertion/ abnormal stress test PRIMARY INDICATION FOR PROCEDURE: Dyspnea on exertion/ abnormal stress test PLANNED PROCEDURE: Operation Date: 10/01/22 07:00 Proposed Procedures p [facility] w/wo [id number],R06.02,R94.39,R07.9(Left) - Andrew Silverman M.D Possible percutaneous coronary intervention PATIENT REASSESSED PRIOR TO SEDATION, WITH NO CHANGE NOTED: Yes PHYSICAL EXAM: alert, oriented x 3, clear to auscultation bilaterally and regular rate & rhythm AIRWAY EVAL/ANESTHESIA PLAN: normal airway, ASA III, Local Anesthesia, Risks, benefits & alternatives of sedation and/or procedure discussed and Patient agrees to continue as planned ADDITIONAL INFORMATION: Moderate sedation
--- NOTE | 2022-10-01 11:57 | PC.NURSE ---
Around 1100: TR Band removed from patients right wrist. Slight ecchymosis noted around puncture site, no drainage. Cleaned around site with soap and water, covered with band-aid. Vitals stable, no c/o pain or discomfort. Will continue to monitor. Around 1200: Discharge orders received. Dressing on puncture site to patients right wrist clean, dry, et intact. No drainage. Vitals stable. Discharge instructions provided to patient. Patient verbalized understanding of all teaching. IV removed. Follow-up appointment made with ZEYNEP Hankins. Patient discharged home via wheelchair in private vehicle.
== END 2022-10-01 06:06 | disposition home or self-care (01) ==
PROVIDERS: PCP Family Medicine; Visit Provider Internal Medicine
DX: I25.10 Atherosclerotic heart disease of native coronary artery without angina pectoris (principal); J44.9 Chronic obstructive pulmonary disease, unspecified; M19.90 Unspecified osteoarthritis, unspecified site; N40.0 Benign prostatic hyperplasia without lower urinary tract symptoms; Z85.51 Personal history of malignant neoplasm of bladder; K21.9 Gastro-esophageal reflux disease without esophagitis; F17.210 Nicotine dependence, cigarettes, uncomplicated; Z79.82 Long term (current) use of aspirin; G25.0 Essential tremor; G31.84 Mild cognitive impairment of uncertain or unknown etiology
CPT/HCPCS: 36415; 80048; 85025; 93458; 96361; 96365; 99152; 99153; C1769; C1887; C1894; J1644; J2250; J3010; J3490; J7030; Q0163; Q9967

== ENCOUNTER → 2022-10-10 09:12 | Outpatient (BNVA) | payer OTHER, SELFPAY | PROVIDERS: PCP Family Medicine; Visit Provider Nurse Practitioner Family | DX: I25.10 Atherosclerotic heart disease of native coronary artery without angina pectoris (principal); F17.210 Nicotine dependence, cigarettes, uncomplicated | CPT/HCPCS: 36415; 80048; 99214 ==

== ENCOUNTER 2022-10-15 09:23 | Oncology outpatient (recurring) (ONCR) | payer OTHER, SELFPAY | END 2022-10-22 23:59 | disposition home or self-care (01) | LOC: ONCMED 09:23 | PROVIDERS: PCP Family Medicine; Visit Provider Internal Medicine Medical Oncology | DX: C34.31 Malignant neoplasm of lower lobe, right bronchus or lung (principal); C34.82 Malignant neoplasm of overlapping sites of left bronchus and lung; C77.2 Secondary and unspecified malignant neoplasm of intra-abdominal lymph nodes; F17.210 Nicotine dependence, cigarettes, uncomplicated | CPT/HCPCS: 99215 ==

== ENCOUNTER → 2022-11-05 14:04 | Outpatient (BNVA) | payer OTHER, SELFPAY | PROVIDERS: PCP Family Medicine; Visit Provider Specialist | DX: G43.019 Migraine without aura, intractable, without status migrainosus (principal); G25.0 Essential tremor; G50.0 Trigeminal neuralgia; C34.92 Malignant neoplasm of unspecified part of left bronchus or lung; F17.210 Nicotine dependence, cigarettes, uncomplicated | CPT/HCPCS: 99214 ==

== ENCOUNTER → 2023-04-22 13:50 | Outpatient (BNVA) | payer OTHER, SELFPAY | PROVIDERS: PCP Family Medicine; Visit Provider Specialist | DX: G25.0 Essential tremor (principal); G50.0 Trigeminal neuralgia; G43.909 Migraine, unspecified, not intractable, without status migrainosus | CPT/HCPCS: 99213 ==

== ENCOUNTER → 2023-05-05 10:48 | Outpatient (BNVA) | payer OTHER, SELFPAY | PROVIDERS: PCP Family Medicine; Visit Provider Internal Medicine Pulmonary Disease | DX: C34.92 Malignant neoplasm of unspecified part of left bronchus or lung (principal); C34.91 Malignant neoplasm of unspecified part of right bronchus or lung; J44.9 Chronic obstructive pulmonary disease, unspecified; F17.200 Nicotine dependence, unspecified, uncomplicated; R91.1 Solitary pulmonary nodule; Z71.6 Tobacco abuse counseling; I25.10 Atherosclerotic heart disease of native coronary artery without angina pectoris; F17.210 Nicotine dependence, cigarettes, uncomplicated; Z99.81 Dependence on supplemental oxygen | CPT/HCPCS: 99214 ==

== ENCOUNTER 2023-05-23 14:18 | Outpatient (CLI) | payer OTHER, SELFPAY ==
--- NOTE | 2023-05-23 15:00 | CT_ITS ---
WS: [id number] CT chest wo con [id number] HISTORY: Lung Cancer TECHNIQUE: Axial imaging performed through the thorax. Coronal and sagittal reformats are submitted. All CT scans at [facility] use at least one of these dose optimization techniques: automated exposure control; mA and/or kV adjustment per patient size (includes targeted exams where dose is mat ched to clinical indication); or iterative reconstruction. CONTRAST: None DLP: 185.28 mGy.cm COMPARISON: 09/10/2022, 04/26/2022 Lungs and central airway: Severe centrilobular emphysema. LEFT upper lobe spiculated mass is reident ified. Stranding and tethering from the mass with spiculations extending to the pleura causing distor tion. Largest central component measures 1.8 x 1.3 cm and probably not significantly changed in size. Previously described LEFT hilar/interlobar lobulated mass has significantly increased in size since the prior study. Mass now measures 3.3 x 3.1 cm and is causing partial obstruction of the LEFT lower lobe bronchus. Additional satellite lesions surrounding the LEFT lower lobe centrally positioned mass . No additional LEFT lower lobe mass. RIGHT apical scarring. 0.5 cm nodule RIGHT upper lobe, image 21 series 4 is new. Spiculated mass RIGHT lower lobe near the diaphragm has increased in size now measu ring 1.4 x 1.3 cm. Peripheral based nodule in the RIGHT lower lobe has decreased in size. Residual ma ss is 1.0 x 0.7 cm. Pleura: Normal. No pleural effusion. Heart and pericardium: Normal size heart with no pericardial effusion. Mediastinum and marco antonio: No additional abnormality on this unenhanced exam. Vessels: Moderate atherosclerosis aorta. Normal sized pulmonary artery. Chest wall and lower neck: No soft tissue masses. Upper abdomen: Hepatic cyst 3.2 x 3.8 cm. Large cyst in the LEFT renal pelvis. Visualized pancreas is atrophied. Osseous structures: Increase in thoracic kyphosis. IMPRESSION: 1. LEFT hilar/interlobar solid mass has significantly increased in size since the prior examination w ith mild partial narrowing of the bronchus. Additional satellite lesions. Large hilar mass measures 3 .3 x 3.1 cm. Prior measurement 1.8 x 2.2 cm. 2. Significant increase in size of the spiculated mass in the RIGHT lower lobe just above the diaphra gm now measuring 1.4 x 1.3 cm. 3. Spiculated LEFT upper lobe mass, unchanged. 4. Near complete resolution previously described RIGHT lower mass within the periphery. 5. Severe centrilobular emphysema.
== END 2023-05-23 14:19 | disposition home or self-care (01) ==
PROVIDERS: PCP Family Medicine; Visit Provider Internal Medicine Pulmonary Disease
DX: C34.92 Malignant neoplasm of unspecified part of left bronchus or lung (principal); R91.8 Other nonspecific abnormal finding of lung field; J43.2 Centrilobular emphysema
CPT/HCPCS: 71250

== ENCOUNTER 2023-06-19 12:06 | Emergency (ER) | payer OTHER, SELFPAY ==
[2023-06-19] VITALS (7 sets, daily range): BP systolic 100–151; BP diastolic 53–89; PULSE 65–91; RESP 16; TEMP 36.4; O2SAT 97–100
--- NOTE | 2023-06-19 12:17 | CT_ITS ---
WS: [id number] CT ABDOMEN AND PELVIS WITH CONTRAST HISTORY: Abdominal pain, GI bleeding TECHNIQUE: Imaging performed of the abdomen and pelvis with IV contrast. Single phase imaging of the abdomen. Coronal and sagittal reformats are submitted. All CT scans at [facility] use at [facility] [facility] one of these dose optimization techniques: automated exposure control; mA and/or kV adjustment per patient size (includes targeted exams where dose is matched to clinical indication); or iterative re construction. IV CONTRAST: Omnipaque 350; 100 mL IV. Oral contrast: No DLP: 287.96 mGy.cm COMPARISON: 10/15/2021, noncontrast chest CT 05/23/2023 Lower thorax: Chronic emphysema. Spiculated nodule at the RIGHT lung base is reidentified measuring 1 6 x 11 mm. Heart is normal size. Small hiatal hernia. Liver/biliary system: Liver is normal size. Patient has a known hepatic cyst in the RIGHT lobe measur ing 3.8 x 2.8 cm. There are numerous low-attenuation masses within the liver consistent with metastat ic disease. These are much more conspicuous on today's CT with contrast. Not definitely visualized on the noncontrast chest CT performed on 23. Low-attenuation masses are present in the RIGHT a nd LEFT lobes of the liver with the largest measuring 3.7 x 3.2 cm. Normal portal vein. Gallbladder:: Mildly hydropic. No stones or inflammation. Pancreas: Markedly atrophic pancreas. Pancreatic duct is mildly prominent. Common bile duct is mildly prominent. No mass identified. Spleen: Normal size spleen. No mass or infarct. Adrenal glands: Normal. Right kidney: Normal. Left kidney: Reidentified is a dilated renal pelvis with diffuse cortical thinning. There is still en hancement of the renal parenchyma. Cyst with wall calcification in the superior pole. LEFT ureter is not dilated. In the region of the LEFT ureteropelvic junction is a lobulated soft tissue mass measuri ng 2.7 x 1.1 cm. Uroepithelial lesion or polyp should be considered. Aorta: Advanced atherosclerosis aorta. Calcification and intimal thickening. Mild dilatation to 2.9 c m at the infrarenal aorta. Lymphadenopathy: None. Free fluid: None. GI tract: Stomach is markedly distended with fluid. There is mild small bowel dilatation also with fl uid. No obstructive pattern. Numerous distal colonic diverticula. No enhancing mass or obstructive pr ocess is identified. Abdominal wall: Patient is markedly cachectic. No hernia. Pelvis: Normally distended urinary bladder. Prostate gland is enlarged with calcification encroaching upon the posterior bladder. Bones: Advanced degenerative changes in the lumbar spine. IMPRESSION: 1. Numerous masses within the liver most consistent with metastatic disease. 2. Spiculated mass in the RIGHT lower lobe at the lung base measures 16 x 11 mm. 3. Marked atrophy of the pancreas. 4. Markedly dilated LEFT renal pelvis with diffuse cortical thinning. In the region of the LEFT uret eropelvic junction is a soft tissue mass measuring 2.7 x 1.1 cm. This may be obstructing uroepithelia l lesion. 5. No ascites and no adenopathy. Patient is markedly cachectic. 6. No GI tract obstruction. Diverticular disease within the colon. No colonic mass identified.
[2023-06-19] MEDS: ondansetron 2 mg/ML SDV 2 mL 4 MG IVP (12:37)
[2023-06-19] MEDS: HYDROmorphone 1 mg/mL INJ 1 mL 0.5 MG IVP ×2 (12:39→15:41)
--- NOTE | 2023-06-19 12:43 | XR_ITS ---
WS: [id number] Portable AP upright chest, 06/19/2023 Clinical Data: SOB Comparison: Portable chest, 09/24/2022 Findings: No nodules, masses or effusions are seen. The heart is normal. The pulmonary vascularity is not increased. No pneumonia or pneumothorax is seen. The aortic arch and descending thoracic aorta s how tortuosity. The diaphragms are flattened. Impression: Atherosclerosis and hyperinflation.
[2023-06-19 12:44] LABS: Basophils % 0.2 %; Eosinophils % 0.1 %; Hematocrit 36.5 % (37-53); Lymphocytes # 0.6 10^3/uL (0.8-4.8); Mean Corpuscular HGB Conc 33.4 g/dL (30-55); Mean Corpuscular Hemoglobin 30.6 pg (27-33); Mean Corpuscular Volume 91.5 fl (82-101); Mean Platelet Volume 8.8 fL (7.4-10.4); Monocytes # 0.9 10^3/uL (0.2-0.9); Monocytes % 7.9 %; Neutrophils # 9.98 10^3/uL (1.8-7.7); Neutrophils % 86.2 %; Nucleated Red Blood Cells % 0 %; Platelet Count 363 10^3/cmm (157-399); Red Blood Count 3.99 10^6/uL (3.85-5.65); White Blood Count 11.57 10^3/uL (3.29-11.43)
[2023-06-19 13:05] LABS: Alanine Aminotransferase 12 U/L (0-41); Albumin Level 3.4 g/dL (3.5-5.2); Alkaline Phosphatase 159 U/L (40-130); Anion Gap 15.7 (5-19); Aspartate Amino Transferase 17 U/L (0-40); Blood Urea Nitrogen 14 mg/dL (8-23); Calcium 10.9 mg/dL (8.5-10.5); Carbon Dioxide 33 mmol/L (22-29); Chloride 88 mmol/L (98-107); Globulin 4.3 g/dL (1.3-4.6); Glucose 147 mg/dL (65-115); Osmolality Calculated 279 mOsm/kg (285-295); Potassium 3.7 mmol/L (3.5-5.1); Sodium 133 mmol/L (136-145); Total Bilirubin 0.4 mg/dL (0.15-1.2); Total Protein 7.7 g/dL (6.6-8.7)
[2023-06-19] MEDS: iohexol 350 mg/mL 500 mL Btl (per mL) IV (13:31)
--- NOTE | 2023-06-19 15:42 | PC.SOCIAL ---
Hospice Consult for CM for Hospice placement. ER US confirmed w/ patient and family that they have been speaking w/ [facility] @ [facility] and that is the company they would prefer. Hospice referral order placed and sent electronically to [facility]. Notified Alina w/ [facility]. Also Called B[facility] w/ [facility] and she reports she will need the order and documentation in order to process the auth. Will send in AM.
--- NOTE | 2023-06-19 15:53 | PC.SOCIAL ---
Hospice Hospice order and face sheet faxed to [facility] @ this time. Choice sheet completed and will email to Rosa Sanders to have added to chart.
--- NOTE | 2023-06-19 17:59 | ED_ITS ---
HPI - Abdominal Pain General: Chief Complaint: Abdominal Pain Stated Complaint: abd pain with bloody stool, lung cancer Time Seen by Provider: 06/19/23 12:07 History of Present Illness: This patient is a 78-year-old white male who presents to the emergency department complaining of left upper quadrant abdominal pain and blood in his stool. States the blood has been bright red. He has had some nausea and vomiting for the past 3 days. He does have some chronic shortness of breath. Patient states he has a history of lung cancer and COPD. He states he did not want any treatment for his lung cancer. He was told in September that he had about a year to live by the oncologist. Review of Systems General: Reports: 10 or more systems reviewed and unremarkable except in HPI and below PFSH ED PFSH: Medical History Anxiety disorder Atherosclerosis of coronary artery Benign prostatic hyperplasia Chronic migraine COPD (chronic obstructive pulmonary disease) Disc degeneration Essential tremor Gastroesophageal reflux disease Malignant neoplasm of bladder Mild cognitive impairment with memory loss Non-small cell lung cancer Tobacco abuse Surgical History History of bronchoscopy (12/11/21) Bronchoscopy/EBUS History of bronchoscopy (09/24/22) Bronchoscopy/EBUS History of cystoscopy (2020) Family History Mother , at age 95 Renal failure Father , in his 60's Cancer colon Social History Smoking and tobacco status: current every day smoker cigarettes Packs smoked per day: 3 Years cigarettes smoked: 67 [ Other cigarette details: 67 years; 0.5ppd currently] Alcohol intake: current Alcohol intake frequency: few times a month Substance/Drug Use: never Marital status: Current occupational status: retired Physical Exam Const: COMMON NORMALS: no acute distress, patient oriented x3 and no limitations GENERAL APPEARANCE: cooperative, comfortable and other ( Cachectic) HENMT: COMMON NORMALS: normocephalic, atraumatic, Normal nasal mucous membranes and turbinates present, moist oral mucous membranes and oropharynx normal HEAD & SCALP: normal to inspection, normocephalic and atraumatic FACE & SINUS: normal facial exam NOSE: Normal nasal mucous membranes and turbinates present Eye: COMMON NORMALS: Equal, round and reactive pupils present, EOMs intact bilaterally and conjunctivae normal GENERAL EYE: appearance normal, both eyes and all related structures CONJUNCTIVA: Yes conjunctivae normal PUPIL: Yes Equal, round and reactive pupils present Neck/C-Spine: COMMON NORMALS: supple and no JVD Chest: COMMONS NORMALS: normal inspection of the chest Resp: COMMON NORMALS: normal respiratory effort and clear to auscultation bilaterally AUSCULTATION: clear to auscultation bilaterally Cardio: COMMON NORMALS: no JVD, regular rate, regular rhythm, No gallops present (Cardio), No murmurs present (Cardio) and No rub (Cardio) RATE: regular rate RHYTHM: regular rhythm GI: AUSCULTATION: Yes normoactive bowel sounds PALPATION: Yes Firmness to palpation present (GI) and Yes Tenderness to palpation present (GI) (Left upper quadrant) : COMMON NORMALS: Yes no CVA tenderness BLADDER/KIDNEY EXAM: Yes no CVA tenderness Back/Pelvis: COMMON NORMALS: no CVA tenderness and thoracic and lumbar spine normal to inspection Extremity: COMMON NORMALS: normal to inspection Neuro: COMMON NORMALS: patient oriented x3 and CN's II-XII intact bilaterally Psych: COMMON NORMALS: mental status grossly normal, Normal thought process present and cooperative THOUGHT PROCESS: Normal thought process present Skin: COMMON NORMALS: no rashes or lesions noted, turgor normal and no jaundice GENERAL SKIN EXAM: no rashes or lesions noted and turgor normal Course Vital Signs: Vital signs: Vital Signs Temperature 97.5 F L 06/19/23 12:11 Pulse Rate 74 06/19/23 17:44 Respiratory Rate 16 06/19/23 12:11 Blood Pressure 122/75 06/19/23 17:44 Pulse Oximetry 100 06/19/23 17:44 Oxygen Delivery Me thod Room Air 06/19/23 13:00 Oxygen Flow Rate 2.5 06/19/23 15:43 MDM - Abdominal Pain Medical Decision Making CBC reveals white blood cell count of 11.1, hemoglobin 12.2. CMP was within normal limits. Chest x-ray revealed hyperinflated lungs consistent with COPD. I did not see any masses. CT scan of the abdomen and pelvis was read by the radiologist. There is a mass in the right lower lobe of the lung. There are numerous masses in the liver consistent with metastatic disease. The left renal pelvis was dilated secondary to a mass at the UPJ. Patient was given Dilaudid for his pain and Zofran for nausea while in the emergency department. I had a lengthy discussion with him and his friends and family members present. Patient does not want any treatment for his cancer. I told him I could help treat his pain and help get hospice set up and he was in agreement with that plan. We did consult the correctional case manager who came down. Hospice nurse did come into the emergency department evaluated the patient as well. They are able to start hospice tomorrow. His family and friends are going to take him home tonight. I did prescribe oxycodone tablets for his pain and recommended he take milk of magnesia with them to prevent constipation. He was discharged in stable condition. Lab Data 06/19/23 12:34 06/19/23 12:34 Labs/Radiology: Laboratory Results WBC 11.57 10^3/uL (3.29-11.43) H 06/19/23 12:34 RBC 3.99 10^6/uL (3.85-5.65) 06/19/23 12:34 Hgb 12.20 g/dL (11.27-16.99) 06/19/23 12:34 Hct 36.5 % (37-53) L 06/19/23 12:34 MCV 91.5 fl (82-101) 06/19/23 12:34 MCH 30.6 pg (27-33) 06/19/23 12:34 MCHC 33.4 g/dL (30-55) 06/19/23 12:34 RDW 13.0 % (12.1-15.1) 06/19/23 12:34 Plt Count 363 10^3/cmm (157-399) 06/19/23 12:34 MPV 8.8 fL (7.4-10.4) 06/19/23 12:34 Neut % (Auto) 86.2 % 06/19/23 12:34 Lymph % (Auto) 5.0 % 06/19/23 12:34 Woodson % (Auto) 7.9 % 06/19/23 12:34 Eos % (Auto) 0.1 % 06/19/23 12:34 Baso % (Auto) 0.2 % 06/19/23 12:34 Neut # (Auto) 9.98 10^3/uL (1.8-7.7) H 06/19/23 12:34 Lymph # (Auto) 0.6 10^3/uL (0.8-4.8) L 06/19/23 12:34 Woodson # (Auto) 0.9 10^3/uL (0.2-0.9) 06/19/23 12:34 Eos # (Auto) 0.0 10^3/uL (0.0-0.8) 06/19/23 12:34 Baso # (Auto) 0.0 10^3/uL (0.0-0.1) 06/19/23 12:34 Nucleated RBC % (auto) 0 % 06/19/23 12:34 Nucleated RBCs # 0.0 /100WBC 06/19/23 12:34 Sodium 133 mmol/L (136-145) L 06/19/23 12:34 Potassium 3.7 mmol/L (3.5-5.1) 06/19/23 12:34 Chloride 88 mmol/L (98-107) L 06/19/23 12:34 Carbon Dioxide 33 mmol/L (22-29) H 06/19/23 12:34 Anion Gap 15.7 (5-19) 06/19/23 12:34 BUN 14 mg/dL (8-23) 06/19/23 12:34 Creatinine 0.9 mg/dL (0.7-1.2) 06/19/23 12:34 GFR Calculation Not Reportable 06/19/23 12:34 Glucose 147 mg/dL (65-115) H 06/19/23 12:34 Calculated Osmolality 279 mOsm/kg (285-295) L 06/19/23 12:34 Calcium 10.9 mg/dL (8.5-10.5) H 06/19/23 12:34 Total Bilirubin 0.4 mg/dL (0.15-1.2) 06/19/23 12:34 AST 17 U/L (0-40) 06/19/23 12:34 ALT 12 U/L (0-41) 06/19/23 12:34 Alkaline Phosphatase 159 U/L (40-130) H 06/19/23 12:34 Total Protein 7.7 g/dL (6.6-8.7) 06/19/23 12:34 Albumin 3.4 g/dL (3.5-5.2) L 06/19/23 12:34 Globulin 4.3 g/dL (1.3-4.6) 06/19/23 12:34 Blood Type B Positive 06/19/23 12:34 Rho(D) Type Positive 06/19/23 12:34 Antibody Screen Negative 06/19/23 12:34 All radiology interpretation(s) finalized by discharge Discharge Plan Discharge Patient Disposition: Home Clinical Impression: Cancer associated pain Condition: Stable Prescriptions: New oxycodone 5 mg tablet 5 mg PO Q4H PRN (Reason: pain) Qty: 30 0RF No Action tamsulosin 0.4 mg capsule 0.4 mg PO DAILY donepezil [Aricept] 5 mg tablet 5 mg PO DAILY Qty: 90 1RF alprazolam [Xanax] 0.25 mg tablet 0.25 mg PO TID PRN (Reason: anxiety) Qty: 30 0RF oxycodone 5 mg tablet 5 mg PO Q8H PRN (Reason: pain) 10 Days Qty: 30 0RF docusate sodium [Colace] 100 mg capsule 100 mg PO DAILY Qty: 10 0RF albuterol sulfate 2.5 mg /3 mL (0.083 %) solution for nebulization 2.5 mg inhalation Q6H Qty: 90 3RF tramadol 50 mg tablet 50 mg PO BID PRN (Reason: pain) Qty: 60 3RF lamotrigine [Lamictal] 150 mg tablet 150 mg PO BID 30 Days Qty: 60 5RF Rx Instructions: Script 3 : take 1 tab twice daily. Monitor for rash. gabapentin 800 mg tablet 400 mg PO BID 90 Days Qty: 90 3RF amitriptyline 25 mg tablet 25 mg PO DAILY 90 Days Qty: 90 3RF (DME) Nebulizer See Rx Instructions .Route .MEDSUPPLY Qty: 1 0RF Rx Instructions: As directed Discharge Orders: Discharge ED (Routine); Ordered 06/19/23 Ordered By: Rick Quezada Referrals: Yi Escobedo MD [Primary Care Provider] - Patient Instructions: Opioid Safety, Pain Management Coding Level of Care Code ED Radio Dispatcher for Fallon Clarke
== END 2023-06-19 17:47 | disposition home or self-care (01) ==
PROVIDERS: Emergency Provider Emergency Medicine; PCP Family Medicine
DX: G89.3 Neoplasm related pain (acute) (chronic) (principal); C34.90 Malignant neoplasm of unspecified part of unspecified bronchus or lung; J44.9 Chronic obstructive pulmonary disease, unspecified; Z85.51 Personal history of malignant neoplasm of bladder; F17.210 Nicotine dependence, cigarettes, uncomplicated
CPT/HCPCS: 71045; 74177; 80053; 85025; 86850; 86900; 96374; 96375; 96376; 99285; J1170; J2405; Q9967